=== PATIENT | female | born 1990 | race African-American/Black ===

== ENCOUNTER 2016-12-25 11:42 | Emergency (ER) | payer OTHER ==
[~2016-12-25] VITALS: Ht 174 cm; Wt 97.5 kg
[2016-12-25 12:10] VITALS: BP 142/71
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
[2016-12-25 13:18] LABS: OBC FLU VALID
[2016-12-25] MEDS ORDERED: PRED20TA PO (13:31)
[2016-12-25] MEDS ORDERED: HYDR115S2 PO (13:31)
== END 2016-12-25 13:36 | disposition home or self-care (01) ==
LOC: ER 11:42
DX: J20.9 Acute bronchitis, unspecified (principal); J45.909 Unspecified asthma, uncomplicated; G43.909 Migraine, unspecified, not intractable, without status migrainosus; E28.2 Polycystic ovarian syndrome; Z88.1 Allergy status to other antibiotic agents
CPT/HCPCS: 71020; 81025; 87804; 99285-25

== ENCOUNTER → 2017-02-24 | Outpatient (CLI) | payer OTHER ==
[~2017-02-24] MED LIST: HYDR115S2 PO; PRED20TA PO
[2017-02-24 15:37] LABS: BASO # 0.1 x10^3/uL (0.0-0.2); BASO % 1 % (0-3); EOS % 2 % (0-3); HEMATOCRIT 41.1 % (36.0-47.0); LYMPH # 2.5 x10^3/uL (1.0-4.8); LYMPH % 27 % (24-48); MEAN CORPUSCULAR HEMOGLOBIN 29 pg (25-35); MEAN CORPUSCULAR HGB CONC 34 g/dL (31-37); MEAN CORPUSCULAR VOLUME 85 fL (79-100); MONO % 6 % (0-9); NEUT % 64 % (31-73); PLATELET COUNT 269 x10^3/uL (140-400); RED BLOOD COUNT 4.85 x10^6/uL (3.50-5.40); RED CELL DISTRIBUTION WIDTH 14.8 % (11.5-14.5); WHITE BLOOD COUNT 9.2 x10^3/uL (4.0-11.0)
[2017-02-24 16:13] LABS: FREE T4 0.87 ng/dL (0.76-1.46)
== END | disposition home or self-care (01) ==
LOC: LAB 15:15
PROVIDERS: ATTEND Obstetrics & Gynecology
DX: E28.2 Polycystic ovarian syndrome (principal)
CPT/HCPCS: 36415; 84439; 84443; 85027

== ENCOUNTER → 2017-03-07 | Outpatient (CLI) | payer OTHER ==
--- NOTE | 2017-03-07 07:27 | RAD ---
Indication: Polycystic ovaries. The uterus measures 10.0 x 4.1 x 2.9 cm. Endometrium is 3 mm in thickness. No uterine mass is detected. The right ovary measures 3.6 x 2.1 x 2.2 cm and the left ovary measures 3.8 x 1.8 x 2.5 cm. There is blood flow to both ovaries. No ovarian mass or cyst is detected. No adnexal mass is identified. No free fluid is detected. Impression: Unremarkable pelvic ultrasound.
== END | disposition home or self-care (01) ==
LOC: US 06:52
PROVIDERS: ATTEND Obstetrics & Gynecology
DX: E28.2 Polycystic ovarian syndrome (principal)
CPT/HCPCS: 76856

== ENCOUNTER → 2017-09-21 | Outpatient (CLI) | payer OTHER | END | disposition home or self-care (01) | LOC: LAB 15:22 | PROVIDERS: ATTEND Internal Medicine | DX: Z32.00 Encounter for pregnancy test, result unknown (principal); Z3A.00 Weeks of gestation of pregnancy not specified | CPT/HCPCS: 36415; 84702 ==

== ENCOUNTER → 2017-09-27 | Outpatient (CLI) | payer OTHER ==
--- NOTE | 2017-09-27 11:34 | RAD ---
KNEE STANDING BILAT AP Clinical Indication: LEFT KNEE PAIN. DEGENERATIVE DISEASE OF LEFT KNEE. Comparison: None. Findings: No acute fracture or malalignment. Mild bilateral medial compartment space narrowing. Bony mineralization is normal for the patient's age. No significant soft tissue abnormality. No radiopaque foreign body. IMPRESSION: 1. No acute fracture or malalignment. 2. Mild bilateral medial compartment space narrowing.
== END | disposition home or self-care (01) ==
LOC: RAD 09:18
PROVIDERS: ATTEND Physical Medicine & Rehabilitation
DX: M17.12 Unilateral primary osteoarthritis, left knee (principal)
CPT/HCPCS: 73565

== ENCOUNTER → 2018-05-16 | Outpatient (CLI) | payer OTHER | END | disposition home or self-care (01) | LOC: US 15:56 | DX: O26.842 Uterine size-date discrepancy, second trimester (principal); Z3A.26 26 weeks gestation of pregnancy | CPT/HCPCS: 76805 ==

== ENCOUNTER 2018-07-22 02:33 | Observation (INO) | payer OTHER ==
[2018-07-22] MEDS ORDERED: 0.9 % SODIUM CHLORIDE 10 ML DISP.SYRIN. IV PRN (02:45)
[2018-07-22] MEDS ORDERED: IV RINGERS,LACTATED 1000ML 1,000 ML IV PRN (03:00)
[2018-07-22 03:15] LABS: BILIRUBIN,URINE NEGATIVE (NEG); CLARITY,URINE CLEAR; COLOR,URINE YELLOW; NITRITE,URINE NEGATIVE (NEG); PH,URINE 5.5; PROTEIN,URINE NEGATIVE (NEG-TRACE)
[2018-07-22 03:24] LABS: AMNIO PT NEGATIVE
[2018-07-22 03:29] LABS: BACTERIA,URINE FEW /HPF (0-FEW); RBC,URINE OCC /HPF (0-2); SQUAMOUS EPITHELIAL CELL,UR MOD /LPF
== END 2018-07-22 04:18 | disposition home or self-care (01) ==
LOC: 3 SO LND 02:33
PROVIDERS: ADMIT Obstetrics & Gynecology; ATTEND Obstetrics & Gynecology
DX: O26.893 Other specified pregnancy related conditions, third trimester (principal); R10.9 Unspecified abdominal pain; Z3A.35 35 weeks gestation of pregnancy
CPT/HCPCS: 36415; 81001; 84112; 87086; G0378; G0379

== ENCOUNTER → 2018-07-24 | Outpatient (CLI) | payer OTHER ==
--- NOTE | 2018-07-24 17:50 | RAD ---
Obstetrical ultrasound, 07/24/2018: HISTORY: Gestational diabetes There is a single intrauterine fetus in a cephalic orientation. The biparietal diameter measures 8.8 cm compatible with a gestational age of 35-36 weeks. This corresponds well with the other measurements yielding an average gestational age of 36 weeks and 0 days and a sonographic EDC of 08/21/2018. This correlates well with the original EDC of 08/20/2018 established on the 03/24/2018 ultrasound exam. Normal activity and heart motion were seen. The heart rate is 115 bpm. The head to abdominal circumference ratio is within normal limits. The weight was estimated at 6 pounds and 1 ounce +/- 14 ounces. A full survey was not attempted at this time. The placenta lies anteriorly and is grade 1. A normal amount of amniotic fluid is evident with the BERONICA calculated at 10.9. The cervix was not adequately visualized due to the overlying head. IMPRESSION: Single viable intrauterine fetus of 36 weeks gestational age as described above, demonstrating normal interval growth since 03/24/2018. Electronically signed by: Jose Lee MD (07/24/2018 5:47 PM) [facility]
== END | disposition home or self-care (01) ==
LOC: US 15:54
PROVIDERS: ATTEND Obstetrics & Gynecology
DX: O24.419 Gestational diabetes mellitus in pregnancy, unspecified control (principal); J45.909 Unspecified asthma, uncomplicated; G43.909 Migraine, unspecified, not intractable, without status migrainosus; Z3A.36 36 weeks gestation of pregnancy; Z88.1 Allergy status to other antibiotic agents
CPT/HCPCS: 76805

== ENCOUNTER 2018-08-01 11:40 | Observation (INO) | payer OTHER ==
[2018-08-01 12:25] LABS: BASO # 0.1 x10^3/uL (0.0-0.2); BASO % 1 % (0-3); EOS # 0.1 x10^3/uL (0.0-0.7); EOS % 1 % (0-3); HEMATOCRIT 38.9 % (36.0-47.0); LYMPH # 2.2 x10^3/uL (1.0-4.8); LYMPH % 20 % (24-48); MEAN CORPUSCULAR HEMOGLOBIN 28 pg (25-35); MEAN CORPUSCULAR HGB CONC 33 g/dL (31-37); MEAN CORPUSCULAR VOLUME 84 fL (79-100); MONO # 0.9 x10^3/uL (0.0-1.1); MONO % 8 % (0-9); NEUT # 7.8 x10^3uL (1.8-7.7); NEUT % 70 % (31-73); PLATELET COUNT 212 x10^3/uL (140-400); RED BLOOD COUNT 4.64 x10^6/uL (3.50-5.40); RED CELL DISTRIBUTION WIDTH 14.5 % (11.5-14.5); WHITE BLOOD COUNT 11.1 x10^3/uL (4.0-11.0)
[2018-08-01 12:35] LABS: CALCIUM 9.5 mg/dL (8.5-10.1); CREATININE 0.5 mg/dL (0.6-1.0); GFR 175.3; POTASSIUM 4.3 mmol/L (3.5-5.1)
[2018-08-01 12:41] LABS: ALBUMIN 2.5 g/dL (3.4-5.0); ALBUMIN/GLOBULIN RATIO 0.6 (1.0-1.7); TOTAL BILIRUBIN 0.5 mg/dL (0.2-1.0); TOTAL PROTEIN 6.8 g/dL (6.4-8.2); URIC ACID 4.3 mg/dL (2.6-6.0)
== END 2018-08-01 14:20 | disposition home or self-care (01) ==
LOC: 3 SO LND 11:40
PROVIDERS: ADMIT Obstetrics & Gynecology; ATTEND Obstetrics & Gynecology
DX: O13.3 Gestational [pregnancy-induced] hypertension without significant proteinuria, third trimester (principal); Z3A.37 37 weeks gestation of pregnancy
CPT/HCPCS: 36415; 80053; 84550; 85025; G0378; G0379

== ENCOUNTER 2018-08-08 17:37 | Inpatient (IN) | payer OTHER ==
[~2018-08-08] VITALS: Ht 172.7 cm; Wt 110.2 kg
[2018-08-08] MEDS ORDERED: NALBUPHINE 10 MG/ML AMPUL. IV PRN (17:45)
[2018-08-08] MEDS ORDERED: OXYTOCIN 30 UNIT/500 ML PREMIX 500 ML IV PRN (17:45)
[2018-08-08] MEDS ORDERED: LIDOCAINE 1% PF 30 ML VIAL. INJ PRN (17:45)
[2018-08-08] MEDS ORDERED: fentaNYL PF VIAL 100 MCG/2 ML VIAL IV PRN (17:45)
[2018-08-08] MEDS ORDERED: TERBUTALINE 1 MG/ML VIAL. SQ PRN (17:45)
[2018-08-08] MEDS ORDERED: IBUPROFEN 400 MG TABLET. PO PRN (17:45)
[2018-08-08] MEDS ORDERED: 0.9 % SODIUM CHLORIDE 10 ML DISP.SYRIN. IV PRN (17:45)
[2018-08-08] MEDS ORDERED: BUTORPHANOL 2 MG/ML VIAL. IV PRN (17:45)
[2018-08-08] MEDS ORDERED: ONDANSETRON PF 4 MG/2 ML VIAL. IV PRN (17:45)
[2018-08-08] MEDS ORDERED: DINOPROSTONE 10 MG SUPP.VAG VG ONE (17:45)
[2018-08-08] MEDS ORDERED: CITRIC ACID/SODIUM CITRATE 30 ML SOLUTION. PO PRN (17:45)
[2018-08-08 18:38] LABS: BASO % 0 % (0-3); EOS % 0 % (0-3); HEMOGLOBIN 13.1 g/dL (12.0-15.5); LYMPH # 2.1 x10^3/uL (1.0-4.8); LYMPH % 19 % (24-48); MEAN CORPUSCULAR HEMOGLOBIN 28 pg (25-35); MEAN CORPUSCULAR HGB CONC 34 g/dL (31-37); MEAN CORPUSCULAR VOLUME 83 fL (79-100); MONO # 0.8 x10^3/uL (0.0-1.1); MONO % 8 % (0-9); NEUT # 8.1 x10^3uL (1.8-7.7); NEUT % 73 % (31-73); PLATELET COUNT 232 x10^3/uL (140-400); RED CELL DISTRIBUTION WIDTH 14.6 % (11.5-14.5); WHITE BLOOD COUNT 11.1 x10^3/uL (4.0-11.0)
[2018-08-08 18:42] VITALS: BP 137/92
[2018-08-08 18:58] LABS: ALBUMIN 2.7 g/dL (3.4-5.0); ALBUMIN/GLOBULIN RATIO 0.7 (1.0-1.7); CALCIUM 9.2 mg/dL (8.5-10.1); CREATININE 0.6 mg/dL (0.6-1.0); POTASSIUM 4.4 mmol/L (3.5-5.1); TOTAL BILIRUBIN 0.6 mg/dL (0.2-1.0); TOTAL PROTEIN 6.5 g/dL (6.4-8.2)
--- NOTE | 2018-08-08 19:29 | PDOC1 ---
OB - History Hx of Present Care: Good Care Ultrasounds: Normal mid trimester US Obstetrical Complications: Gestational Hypertension, Other (GDM A1) Medical Complications: None Past Family/Social History * Past Medical, Surgical, Family and Obstetric Histories reviewed from chart. Rubella: Immune RPR/VDRL: Negative GBS Status: Negative HBsAG: Negative OB - Chief Complaint & HPI Date of Admission: Date of Admission: Aug 08, 2018 at 17:37 Chief Complaint/History : 3 Para: 1 EGA: 38 Reason for admission: induction of labor (Gestational HTN) Admission Nurse Assessment Rev: Yes OB - Admission Exam Physical Exam Vitals: VS - Last 72 Hours, by Label Date Time Temp Pulse Resp B/P (MAP) Pulse Ox O2 Delivery O2 Flow Rate FiO2 08/08/18 18:42 80 20 137/92 (107) HEENT: Normal Heart: Regular Rate Lungs: Clear Abdomen: Gravid, Non tender, Soft Extremities: Edema Reflexes: Normal Cervical Dilatation: 1cm Effacement: 50% Station: -3 Membranes: Intact Heart Rate: Normal Accelerations: Accelerations Present Decelerations: No decelerations Contractions on Admission: >10 Minutes Apart Intensity: Mild Text A: 38 wks IUP Gestational HTN P: Admit for cervidil, then pitocin. JAREN VELAZQUEZ Jr, MD Aug 08, 2018 19:29
[2018-08-08] MEDS ORDERED: LABETALOL 20 MG/4 ML DISP.SYRIN. IVP PRN (20:00)
[2018-08-08] MEDS ORDERED: diphenhydrAMINE HCL 25 MG CAPSULE PO PRN (20:00)
[2018-08-08] MEDS: NIFEdipine 10 MG CAPSULE PO SCH (20:49)
[2018-08-08] MEDS: ACETAMINOPHEN 325 MG TABLET. PO PRN (21:28)
[2018-08-09] MEDS: OXYTOCIN 30 UNIT/500 ML PREMIX 500 ML IV PRN ×2 (00:11→10:37)
[2018-08-09] MEDS: IV RINGERS,LACTATED 1000ML 1,000 ML IV SCH ×3 (00:11→17:33)
[2018-08-09] MEDS: ACETAMINOPHEN 325 MG TABLET. PO PRN ×2 (04:05→08:43)
[2018-08-09] MEDS ORDERED: OXYTOCIN 30 UNIT/500 ML PREMIX 500 ML IV PRN ×2 (05:00→19:15)
[2018-08-09] MEDS ORDERED: ASPIRIN 325 MG TABLET PO ONE (13:30)
[2018-08-09] MEDS ORDERED: L&D EPIDURAL SYRINGE 50 ML ONE ×2 (14:08→17:27)
[2018-08-09] MEDS ORDERED: ROPIVacaine 0.2% IN 0.9%NACL PF 40 MG/20 ML DISP.SYRIN. ONE ×3 (14:08→16:31)
[2018-08-09] MEDS ORDERED: IV RINGERS,LACTATED 1000ML 1,000 ML IV SCH (14:42)
[2018-08-09] MEDS ORDERED: NALOXONE 0.4 MG/ML VIAL. IV PRN (14:45)
[2018-08-09] MEDS ORDERED: ePHEDrine PF IN SALINE 50 MG/5 ML DISP.SYRIN IV PRN (14:45)
[2018-08-09] MEDS ORDERED: fentaNYL PF VIAL 100 MCG/2 ML VIAL EPI PRN (14:45)
[2018-08-09] MEDS ORDERED: ROPIVacaine 0.2% IN 0.9%NACL PF 40 MG/20 ML DISP.SYRIN. EPID PRN (14:45)
[2018-08-09] MEDS ORDERED: ONDANSETRON PF 4 MG/2 ML VIAL. IV PRN (14:45)
[2018-08-09] MEDS ORDERED: L&D EPIDURAL 50 ML SYRINGE. ONE (15:00)
[2018-08-09] MEDS ORDERED: L&D EPIDURAL SYRINGE 50 ML EP PRN (17:30)
--- NOTE | 2018-08-09 19:13 | PDOC ---
VAGINAL DELIVERY DATE DATE: 08/09/18 TIME: 19:11 : 3 Para: 2 EGA: 38 VAGINAL DELIVERY: VTX VACCUM ASSISTED: No PLACENTA: Spontaneous 8/9 SEX: Female WEIGHT Weight [ 3175 gm] Nuchal Cord: Yes, Times 1 Amniotic Fluid: Clear PAIN: Epidural EPISIOTOMY: No EXTENSION: No EBL 300ml COMPLICATIONS none CONDITION pt. stable Signs of Intrauterine Infectio: None Shoulder Dystocia: No JAREN VELAZQUEZ Jr, MD Aug 09, 2018 19:13
[2018-08-09] MEDS ORDERED: ACETAMINOPHEN 325 MG TABLET. PO PRN (19:15)
[2018-08-09] MEDS ORDERED: PHENYLEPH/MINERAL OIL/PETROLAT RECTAL OINTMENT 28GM TUBE. RC PRN (19:15)
[2018-08-09] MEDS ORDERED: SIMETHICONE 80 MG TAB.CHEW PO PRN (19:15)
[2018-08-09] MEDS ORDERED: diphenhydrAMINE HCL 25 MG CAPSULE PO PRN (19:15)
[2018-08-09] MEDS ORDERED: DOCUSATE SODIUM 100 MG CAPSULE. PO PRN (19:15)
[2018-08-09] MEDS ORDERED: MAGNESIUM HYDROXIDE 2,400 MG/30 ML ORAL.SUSP. PO PRN (19:15)
[2018-08-09] MEDS ORDERED: HYDROCORTISONE 1% TOPICAL OINTMENT 30GM TUBE. TP PRN (19:15)
[2018-08-09] MEDS ORDERED: ZOLPIDEM 5 MG TABLET. PO PRN (19:15)
[2018-08-09] MEDS ORDERED: MAG HYDROX/ALUMINUM HYD/SIMETH 30 ML ORAL.SUSP PO PRN (19:15)
[2018-08-09] MEDS ORDERED: MMR per PROTOCOL. MC PRN (19:15)
[2018-08-09] MEDS ORDERED: oxyCODONE/APAP 5/325 1 TAB TABLET PO PRN (19:15)
[2018-08-09] MEDS ORDERED: 0.9 % SODIUM CHLORIDE 10 ML DISP.SYRIN. IV PRN (19:15)
[2018-08-09] MEDS ORDERED: BENZOCAINE 20% TOPICAL AEROSOL SPRAY 57GM CAN. TP PRN (19:15)
[2018-08-09] MEDS: IBUPROFEN 400 MG TABLET. PO PRN (21:21)
[2018-08-09 22:39] VITALS: BP 119/64
[2018-08-09 23:45] VITALS: BP 136/84
[2018-08-10] MEDS: NIFEdipine 10 MG CAPSULE PO SCH (00:21)
[2018-08-10 05:02] LABS: BASO % 0 % (0-3); EOS % 0 % (0-3); HEMATOCRIT 36.5 % (36.0-47.0); HEMOGLOBIN 12.2 g/dL (12.0-15.5); LYMPH # 2.4 x10^3/uL (1.0-4.8); LYMPH % 17 % (24-48); MEAN CORPUSCULAR HEMOGLOBIN 28 pg (25-35); MEAN CORPUSCULAR HGB CONC 34 g/dL (31-37); MEAN CORPUSCULAR VOLUME 84 fL (79-100); MONO # 0.7 x10^3/uL (0.0-1.1); MONO % 5 % (0-9); NEUT # 10.7 x10^3uL (1.8-7.7); NEUT % 77 % (31-73); PLATELET COUNT 190 x10^3/uL (140-400); RED BLOOD COUNT 4.34 x10^6/uL (3.50-5.40); RED CELL DISTRIBUTION WIDTH 15.1 % (11.5-14.5); WHITE BLOOD COUNT 13.8 x10^3/uL (4.0-11.0)
[2018-08-10] MEDS: IBUPROFEN 400 MG TABLET. PO PRN ×2 (06:00→22:11)
[2018-08-10 06:16] VITALS: BP 121/74
[2018-08-10] MEDS ORDERED: FERROUS SULFATE 325 MG TABLET. PO SCH (08:00)
--- NOTE | 2018-08-10 08:45 | PDOC ---
OB Progress Note Date of Service 08/10/18 Time of Evaluation 0845 Notes PT. feeling well. No complaints. Lab Laboratory Tests Test 08/08/18 18:15 08/10/18 04:25 White Blood Count 11.1 x10^3/uL (4.0-11.0) 13.8 x10^3/uL (4.0-11.0) Red Blood Count 4.70 x10^6/uL (3.50-5.40) 4.34 x10^6/uL (3.50-5.40) Hemoglobin 13.1 g/dL (12.0-15.5) 12.2 g/dL (12.0-15.5) Hematocrit 39.0 % (36.0-47.0) 36.5 % (36.0-47.0) Mean Corpuscular Volume 83 fL (79-100) 84 fL (79-100) Mean Corpuscular Hemoglobin 28 pg (25-35) 28 pg (25-35) Mean Corpuscular Hemoglobin Concent 34 g/dL (31-37) 34 g/dL (31-37) Red Cell Distribution Width 14.6 % (11.5-14.5) 15.1 % (11.5-14.5) Platelet Count 232 x10^3/uL (140-400) 190 x10^3/uL (140-400) Neutrophils (%) (Auto) 73 % (31-73) 77 % (31-73) Lymphocytes (%) (Auto) 19 % (24-48) 17 % (24-48) Monocytes (%) (Auto) 8 % (0-9) 5 % (0-9) Eosinophils (%) (Auto) 0 % (0-3) 0 % (0-3) Basophils (%) (Auto) 0 % (0-3) 0 % (0-3) Neutrophils # (Auto) 8.1 x10^3uL (1.8-7.7) 10.7 x10^3uL (1.8-7.7) Lymphocytes # (Auto) 2.1 x10^3/uL (1.0-4.8) 2.4 x10^3/uL (1.0-4.8) Monocytes # (Auto) 0.8 x10^3/uL (0.0-1.1) 0.7 x10^3/uL (0.0-1.1) Eosinophils # (Auto) 0.0 x10^3/uL (0.0-0.7) 0.0 x10^3/uL (0.0-0.7) Basophils # (Auto) 0.0 x10^3/uL (0.0-0.2) 0.0 x10^3/uL (0.0-0.2) Sodium Level 140 mmol/L (136-145) Potassium Level 4.4 mmol/L (3.5-5.1) Chloride Level 106 mmol/L (98-107) Carbon Dioxide Level 21 mmol/L (21-32) Anion Gap 13 (6-14) Blood Urea Nitrogen 8 mg/dL (7-20) Creatinine 0.6 mg/dL (0.6-1.0) Estimated GFR (Cockcroft-Gault) 142.0 BUN/Creatinine Ratio 13 (6-20) Glucose Level 91 mg/dL (70-99) Uric Acid 6.0 mg/dL (2.6-6.0) Calcium Level 9.2 mg/dL (8.5-10.1) Total Bilirubin 0.6 mg/dL (0.2-1.0) Aspartate Amino Transf (AST/SGOT) 16 U/L (15-37) Alanine Aminotransferase (ALT/SGPT) 17 U/L (14-59) Alkaline Phosphatase 272 U/L (46-116) Total Protein 6.5 g/dL (6.4-8.2) Albumin 2.7 g/dL (3.4-5.0) Albumin/Globulin Ratio 0.7 (1.0-1.7) Treponema pallidum Antibody Nonreactive (Nonreactive) Laboratory Tests Test 08/10/18 04:25 White Blood Count 13.8 x10^3/uL (4.0-11.0) Red Blood Count 4.34 x10^6/uL (3.50-5.40) Hemoglobin 12.2 g/dL (12.0-15.5) Hematocrit 36.5 % (36.0-47.0) Mean Corpuscular Volume 84 fL (79-100) Mean Corpuscular Hemoglobin 28 pg (25-35) Mean Corpuscular Hemoglobin Concent 34 g/dL (31-37) Red Cell Distribution Width 15.1 % (11.5-14.5) Platelet Count 190 x10^3/uL (140-400) Neutrophils (%) (Auto) 77 % (31-73) Lymphocytes (%) (Auto) 17 % (24-48) Monocytes (%) (Auto) 5 % (0-9) Eosinophils (%) (Auto) 0 % (0-3) Basophils (%) (Auto) 0 % (0-3) Neutrophils # (Auto) 10.7 x10^3uL (1.8-7.7) Lymphocytes # (Auto) 2.4 x10^3/uL (1.0-4.8) Monocytes # (Auto) 0.7 x10^3/uL (0.0-1.1) Eosinophils # (Auto) 0.0 x10^3/uL (0.0-0.7) Basophils # (Auto) 0.0 x10^3/uL (0.0-0.2) Medications Current Medications Sodium Chloride (Normal Saline Flush) 3 ml QSHIFT PRN IV AFTER MEDS AND BLOOD DRAWS; Start 08/08/18 at 17:45 Ringer's Solution 1,000 ml @ 125 mls/hr Q8H IV Last administered on at 17:33; Start 08/08/18 at 17:42 Nalbuphine HCl (Nubain) 10 mg PRN Q1HR PRN IV Severe labor pain; Start at 17:45 Butorphanol Tartrate (Stadol) 2 mg PRN Q1HR PRN IV Severe labor pain; Start at 17:45 Fentanyl Citrate (Fentanyl 2ml Vial) 100 mcg PRN Q30MIN PRN IV Severe pain; Start 08/08/18 at 17:45; Stop 08/09/18 at 17:32; Status DC Acetaminophen (Tylenol) 650 mg PRN Q6HRS PRN PO MILD PAIN / TEMP Last administered on 08/09/18at 08:43; Start 08/08/18 at 17:45; Stop 08/09/18 at 19: 17; Status DC Ondansetron HCl (Zofran) 4 mg PRN Q4HRS PRN IV NAUSEA/VOMITING; Start 08/08/18 at 17:45 Citric Acid/ Sodium Citrate (Bicitra) 30 ml 1X PRN PRN PO DYSPEPSIA; Start 08/08/18 at 17:45; Stop 08/09/18 at 17:44; Status DC Terbutaline Sulfate (Brethine) 0.25 mg 1X PRN PRN SQ SEE COMMENTS; Start at 17:45; Stop 08/09/18 at 17:44; Status DC Lidocaine HCl (Xylocaine 1% Pf 30ml Vial) 30 ml 1X PRN PRN INJ SEE COMMENTS; Start 08/08/18 at 17:45; Stop 08/10/18 at 17:44 Oxytocin/Sodium Chloride 500 ml @ 0 mls/hr CONT PRN IV SEE I/O RECORD; Start 08/09/18 at 05:00; Stop 08/09/18 at 05:00; Status DC Oxytocin/Sodium Chloride 500 ml @ 0 mls/hr CONT PRN PRN IV Post delivery bleeding; Start 08/08/18 at 17:45 Ibuprofen (Motrin) 800 mg PRN Q6HRS PRN PO PAIN; Start 08/08/18 at 17:45; Stop 08/09/18 at 19:17; Status DC Dinoprostone (Cervidil) 10 mg 1X ONCE VG Last administered on 08/07/18at 17:45 ; Start 08/08/18 at 17:45; Stop 08/08/18 at 17:49; Status DC Nifedipine (Procardia) 30 mg HS PO Last administered on 08/10/18at 00:21; Start 08/08/18 at 21:00 Labetalol HCl (Normodyne Iv Push) 20 mg PRN Q10MIN PRN IVP hypertension; Start 08/08/18 at 20:00 Diphenhydramine HCl (Benadryl) 50 mg PRN QHS PRN PO INSOMNIA; Start 08/08/18 at 20:00 Oxytocin/Sodium Chloride 500 ml @ 0 mls/hr CONT PRN IV SEE I/O RECORD Last administered on 08/09/18at 10:37; Start 08/09/18 at 00:00 Influenza Virus Vaccine (Afluria Trivalent 5993-4297 Syringe) 0.5 ml ONCE ONCE VAX IM ; Start 08/09/18 at 12:00; Stop 08/09/18 at 12:01; Status DC Aspirin (Rhina Aspirin) 325 mg 1X ONCE PO Last administered on 08/09/18at 13: 28; Start 08/09/18 at 13:30; Stop 08/09/18 at 13:31; Status DC Ropivacaine/ Sodium Chloride (ROPIVacaine 0.2% - 0.9%NACL PF) 40 mg STK-MED ONCE .ROUTE ; Start 08/09/18 at 14:08; Stop 08/09/18 at 14:09; Status DC Ropivacaine/ Fentanyl/NS 50 ml @ As Directed STK-MED ONCE .ROUTE ; Start at 14:08; Stop 08/09/18 at 14:09; Status DC Ringer's Solution 1,000 ml @ 1,000 mls/hr Q1H IV ; Start 08/09/18 at 14:42; Stop 08/09/18 at 15:41; Status DC Ephedrine Sulfate (ePHEDrine PF IN SALINE SYRINGE) 10 mg PRN Q2MIN PRN IV IF SBP<90; Start 08/09/18 at 14:45 Naloxone HCl (Narcan) 0.4 mg PRN Q1MIN PRN IV SEE COMMENTS; Start 08/09/18 at 14:45 Fentanyl Citrate (Fentanyl 2ml Vial) 100 mcg PRN 1X PRN EPI FOR ANESTHESIA; Start 08/09/18 at 14:45; Stop 08/10/18 at 14:44 Ondansetron HCl (Zofran) 4 mg PRN Q6HRS PRN IV NAUSEA/VOMITING; Start at 14:45; Status Cancel Ropivacaine/ Sodium Chloride (ROPIVacaine 0.2% - 0.9%NACL PF) 40 mg PRN 1X PRN EPID SEE COMMENTS Last administered on 08/09/18at 14:48; Start 08/09/18 at 14: 45; Stop 08/09/18 at 14:51; Status DC Ropivacaine/ Sodium Chloride (ROPIVacaine 0.2% - 0.9%NACL PF) 40 mg STK-MED ONCE .ROUTE ; Start 08/09/18 at 16:31; Stop 08/09/18 at 16:32; Status DC Ropivacaine/ Fentanyl/NS 50 ml @ As Directed STK-MED ONCE .ROUTE ; Start at 17:27; Stop 08/09/18 at 17:28; Status DC Ropivacaine/ Fentanyl/NS 50 ml @ 14 mls/hr CONT PRN EP PAIN Last administered on 08/09/18at 17:34; Start 08/09/18 at 17:30 Sodium Chloride (Normal Saline Flush) 10 ml QSHIFT PRN IV AFTER MEDS AND BLOOD DRAWS; Start 08/09/18 at 19:15 Oxytocin/Sodium Chloride 500 ml @ 62.5 mls/hr CONT PRN IV SEE I/O RECORD; Start 08/09/18 at 19:15; Stop 08/10/18 at 03:14; Status DC Acetaminophen (Tylenol) 650 mg PRN Q6HRS PRN PO MILD PAIN / TEMP; Start at 19:15 Ibuprofen (Motrin) 800 mg PRN Q8HRS PRN PO INFLAMMATION/PAIN PREVENTION Last administered on 08/10/18at 06:00; Start 08/09/18 at 19:15 Docusate Sodium (Colace) 100 mg PRN BID PRN PO HARD STOOLS; Start 08/09/18 at 19:15 Magnesium Hydroxide (Milk Of Magnesia) 2,400 mg PRN DAILY PRN PO CONSTIPATION; Start 08/09/18 at 19:15 Al Hydroxide/Mg Hydroxide (Mylanta Plus Xs) 30 ml PRN Q4HRS PRN PO HEARTBURN / GAS; Start 08/09/18 at 19:15 Simethicone (Gas-X) 80 mg PRN AFTMEALHC PRN PO GAS / BLOATING; Start 08/09/18 at 19:15 Diphenhydramine HCl (Benadryl) 25 mg PRN Q6HRS PRN PO ITCHING; Start 08/09/18 at 19:15 Benzocaine (Americaine) 1 spray PRN QID PRN TP TOPICAL PAIN; Start 08/09/18 at 19:15 Phenyleph/Shark Oil/Min Oil/Petrol (Preparation H) 1 kenny PRN QID PRN RC RECTAL PAIN; Start 08/09/18 at 19:15 Hydrocortisone (Cortaid) 1 kenny PRN QID PRN TP PERINEAL PAIN; Start 08/09/18 at 19:15 Ferrous Sulfate (Feosol) 325 mg BIDWMEALS PO ; Start 08/10/18 at 08:00; Stop 08/10/18 at 08:00; Status DC Zolpidem Tartrate (Ambien) 5 mg PRN QHS PRN PO INSOMNIA, MAY REPEAT X1; Start 08/09/18 at 19:15 Info (Do NOT chart on this placeholder) 1 ea 1X PRN PRN MC SEE COMMENTS; Start 08/09/18 at 19:15 Info (Do NOT chart on this placeholder) 1 ea 1X PRN PRN MC SEE COMMENTS; Start 08/09/18 at 19:15 Oxycodone/ Acetaminophen (Percocet 5/325) 2 tab PRN Q4HRS PRN PO MODERATE PAIN , SEVERE PAIN; Start 08/09/18 at 19:15 Ropivacaine/ Fentanyl/NS (Vsgvobem-Joveu-QG 3 Mcg-0.1%) 50 ml STK-MED ONCE .ROUTE ; Start 08/09/18 at 15:00; Stop 08/10/18 at 08:32; Status DC Ropivacaine/ Sodium Chloride (ROPIVacaine 0.2% - 0.9%NACL PF) 40 mg STK-MED ONCE .ROUTE ; Start 08/09/18 at 15:00; Stop 08/10/18 at 08:32; Status DC Active Scripts Active Tussionex Pennkinetic Susp (Hydrocodone/Chlorphen Polis) 480 Ml Emelyn.er.12h 5 Ml PO BID Prednisone 20 Mg Tablet 40 Mg PO DAILY 5 Days Exam Abd: soft, non tender, fundus firm Assessment PPD#1 s/p Plan of Care: Continue current Tx, Mgmt JAREN VELAZQUEZ Jr, MD Aug 10, 2018 08:45
[2018-08-10] MEDS ORDERED: DIPHTH,PERTUSS(ACELL),TET TOX 0.5 ML DISP.SYRIN. VAX IM ONE (10:15)
[2018-08-10 11:00] VITALS: BP 120/77
[2018-08-10 15:35] VITALS: BP 118/62
[2018-08-10 21:45] VITALS: BP 139/88
[2018-08-11 05:55] VITALS: BP 133/84
--- NOTE | 2018-08-11 12:14 | PDOC3 ---
OB DISCHARGE SUMMARY DATE OF ADMISSION: 08/08/18 DATE OF DISCHARGE: 08/11/18 REASON FOR ADMISSION: Induction of labor (Gestational HTN) INTRAPARTUM PROCEDURES: Spontanous Vag Deliv DISCHARGE DIAGNOSIS: Term Delivered (Gestational HTN) DISCHARGE INFORMATION: Activity (ad taj), Diet (regular), Instructions (pelvic rest x 6 wks) HOSPITAL COURSE Term gestation for IOL secondary gestational HTN. SHe delivered without complications. JAREN VELAZQUEZ Jr, MD Aug 11, 2018 12:14
--- NOTE | 2018-08-11 12:15 | DISCH ---
DISCHARGE INSTRUCTIONS Condition on Discharge Condition on Discharge: Stable Activity After Discharge Activity Instructions for Disc: Activity as tolerated Lifting Instructions after Dis: No heavy lifting Driving Instructions after Dis: Do not drive today Diet after Discharge Diet after Discharge: Regular Contacting the DRPhillip after DC Call your doctor for: Concerns you may have Follow-Up Follow up with: Dr. Fowler in 6 wks JAREN FOWLER Jr, MD Aug 11, 2018 12:15
[2018-08-11] MEDS ORDERED: IBUP-1027 PO (12:16)
[2018-08-11 14:52] VITALS: BP 122/84
--- NOTE | 2018-08-11 15:08 | PATHOLOGY ---
[facility] Accession Number: [id number] . 01 Material submitted: . PLACENTA WITH CORD . 01 Clinical history: . Please see delivery summary. . 02 Diagnosis: Placenta and cord: - Findings compatible with third trimester placenta (490 grams). - Three vessel umbilical cord; negative for vasculitis and funisitis. - Membranes; negative for acute chorioamnionitis. (MAP/db; 08/11/18) LBQ/08/11/2018 . 02 Electronically signed: . Natanael Ferrari MD, Pathologist NPI- [id number] . 01 Gross description: . Received in formalin labeled "Mago Tsai, placenta" is a cordero placenta with attached membranes and umbilical cord. The placental disc measures 16.5 x 15.6 x 3.8 cm. The membranes are transparent and thin with the site of membrane rupture 1.6 cm from the placental margin. The membranes have a circum-marginate insertion. The umbilical cord measures 48.0 cm in length, 1.0 cm in diameter, contains three vessels and inserts eccentrically, 2.8 cm from the closest placental margin. There are no true knots in the umbilical cord. The trimmed placental weight is 490 grams. The surface is blue-bradshaw with minimal subchorionic fibrin. Amnion nodosum is not present. Cysts are not present. The maternal surface has intact cotyledons and no basal hemorrhage. Sectioning through the placental disc reveals scant focal areas of calcification and no infarcts. Sections are submitted as follows: . A1 proximal and distal umbilical cord A2 membranes, rolled A3 international sales representative peripheral placenta A4 international sales representative central placenta ([facility]; 08/10/2018) SYC/SYC . 02 Pathologist provided ICD-10: O80, Z37.0, Z3A.37 . 02 [facility] . [id number] Specimen Comment: A courtesy copy of this report has been sent to Specimen Comment: [phone], . Specimen Comment: Report sent to / DR AVILES Performed at: [address], [place] [id number] MD Sandip Redmond MD Phone: [phone] Performed at: [address] [id number] MD Alyse Fishman MD Phone: [phone]
== END 2018-08-11 16:30 | disposition home or self-care (01) | DRG 807 ==
LOC: 3 SO LND 17:37
PROVIDERS: ADMIT Obstetrics & Gynecology; ATTEND Obstetrics & Gynecology
PROC: 10E0XZZ Delivery of Products of Conception, External Approach (ICD-10-PCS; principal; 2018-08-10)
PROC: 3E0R3BZ Introduction of Anesthetic Agent into Spinal Canal, Percutaneous Approach (ICD-10-PCS; 2018-08-10)
PROC: 00HU33Z Insertion of Infusion Device into Spinal Canal, Percutaneous Approach (ICD-10-PCS; 2018-08-10)
PROC: 3E0P7VZ Introduction of Hormone into Female Reproductive, Via Natural or Artificial Opening (ICD-10-PCS; 2018-08-10)
DX: O13.4 Gestational [pregnancy-induced] hypertension without significant proteinuria, complicating childbirth (principal); Z37.0 Single live birth; O69.81X0 Labor and delivery complicated by cord around neck, without compression, not applicable or unspecified; Z3A.38 38 weeks gestation of pregnancy; Z86.32 Personal history of gestational diabetes; Z88.8 Allergy status to other drugs, medicaments and biological substances; Z91.013 Allergy to seafood
CPT/HCPCS: 36415; 80053; 84550; 85025; 86592; 86850; 86900; 86901; 88307; 90471; 90715; 90756; J2590; J2795; J7120; Q2035

== ENCOUNTER 2018-12-20 19:40 | Emergency (ER) | payer OTHER ==
[~2018-12-20] VITALS: Ht 172.7 cm; Wt 103.4 kg
[~2018-12-20 19:40] MED LIST changes: +IBUP-1027 PO
[2018-12-20] MEDS ORDERED: DEXAMETHASONE SOD PHOS 20 MG/5 ML VIAL. IV ONE (22:00)
[2018-12-20] MEDS ORDERED: IV NORMAL SALINE 1000ML BAG 1,000 ML IV ONE (22:00)
[2018-12-20] MEDS ORDERED: ONDANSETRON PF 4 MG/2 ML VIAL. IV ONE ×2 (22:00)
[2018-12-20] MEDS ORDERED: KETOROLAC 15 MG/ML VIAL. IV ONE (22:00)
[2018-12-20 22:16] LABS: BASO # 0.1 x10^3/uL (0.0-0.2); BASO % 1 % (0-3); EOS # 0.3 x10^3/uL (0.0-0.7); EOS % 4 % (0-3); HEMATOCRIT 43.7 % (36.0-47.0); HEMOGLOBIN 14.3 g/dL (12.0-15.5); LYMPH % 28 % (24-48); MEAN CORPUSCULAR HEMOGLOBIN 28 pg (25-35); MEAN CORPUSCULAR HGB CONC 33 g/dL (31-37); MEAN CORPUSCULAR VOLUME 84 fL (79-100); MONO # 0.4 x10^3/uL (0.0-1.1); MONO % 6 % (0-9); NEUT # 4.6 x10^3uL (1.8-7.7); NEUT % 62 % (31-73); PLATELET COUNT 239 x10^3/uL (140-400); RED BLOOD COUNT 5.18 x10^6/uL (3.50-5.40); RED CELL DISTRIBUTION WIDTH 14.9 % (11.5-14.5); WHITE BLOOD COUNT 7.4 x10^3/uL (4.0-11.0)
[2018-12-20 22:28] LABS: CREATININE 0.5 mg/dL (0.6-1.0); GFR 175.3
[2018-12-20 22:35] LABS: ALBUMIN 3.8 g/dL (3.4-5.0); MAGNESIUM 2.1 mg/dL (1.8-2.4); TOTAL BILIRUBIN 0.9 mg/dL (0.2-1.0); TOTAL PROTEIN 7.8 g/dL (6.4-8.2)
[2018-12-20 23:28] LABS: BILIRUBIN,URINE NEGATIVE (NEG); CLARITY,URINE CLOUDY; COLOR,URINE YELLOW; NITRITE,URINE POSITIVE (NEG); PROTEIN,URINE NEGATIVE (NEG-TRACE); UROBILINOGEN,URINE 0.2 mg/dL (0.2 mg/dL)
[2018-12-20 23:32] LABS: BACTERIA,URINE MANY /HPF (0-FEW); RBC,URINE 0 /HPF (0-2); SQUAMOUS EPITHELIAL CELL,UR MOD /LPF
[2018-12-21] MEDS ORDERED: CEPH-264 PO (00:14)
[2018-12-21] MEDS ORDERED: BUTA1TAB23 PO (00:14)
[2018-12-21] MEDS ORDERED: ONDA4TAB12 PO (00:14)
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
[2018-12-21] MEDS ORDERED: cefTRIAXone IV Push 1 GM VIAL. IVP ONE (00:15)
[2018-12-21 01:02] VITALS: BP 116/72
== END 2018-12-21 01:34 | disposition home or self-care (01) ==
LOC: ER 19:40
DX: R51 Headache (principal); N30.00 Acute cystitis without hematuria; J45.909 Unspecified asthma, uncomplicated; G43.909 Migraine, unspecified, not intractable, without status migrainosus; Z88.1 Allergy status to other antibiotic agents; Z91.013 Allergy to seafood
CPT/HCPCS: 36415; 80053; 81001; 81025; 83735; 85025; 87086; 96374; 96375; 99284; J0696; J1100; J1885; J2405; J7030

== ENCOUNTER 2019-01-16 11:32 | Emergency (ER) | payer OTHER ==
[~2019-01-16] VITALS: Ht 175.3 cm; Wt 100.7 kg
[~2019-01-16 11:32] MED LIST changes: +BUTA1TAB23 PO; +CEPH-264 PO; +ONDA4TAB12 PO
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
[2019-01-16] MEDS: predniSONE 10 MG TABLET PO ONE (12:26)
[2019-01-16] MEDS: IPRATRPIUM/ALBUTEROL 0.5/2.5MG 3 ML NEBU. NEB ONE (12:35)
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
[2019-01-16] MEDS ORDERED: VENTOLIN HFA18 GM INH (13:43)
[2019-01-16 13:50] VITALS: BP 148/90
[2019-01-23] MEDS ORDERED: NIFE30TA2 PO (12:50)
== END 2019-01-16 13:50 | disposition home or self-care (01) ==
LOC: ER 11:32
DX: J45.20 Mild intermittent asthma, uncomplicated (principal); G43.909 Migraine, unspecified, not intractable, without status migrainosus; Z88.1 Allergy status to other antibiotic agents; Z91.013 Allergy to seafood
CPT/HCPCS: 71046; 81025; 94640; 99283; J7512; J7620

== ENCOUNTER 2019-01-25 06:07 | Day surgery (SDC) | payer OTHER ==
[~2019-01-25 06:07] MED LIST changes: +BUPIVACAINE-EPI 0.25%-1:200000 MPF 30 ML VIAL. ONE; +NIFE30TA2 PO; +VENTOLIN HFA18 GM INH
[2019-01-25] MEDS ORDERED: fentaNYL PF VIAL 100 MCG/2 ML VIAL IV PRN (07:00)
[2019-01-25] MEDS ORDERED: MORPHINE SULFATE 2 MG/ML VIAL. IV PRN (07:00)
[2019-01-25] MEDS ORDERED: IV RINGERS,LACTATED 1000ML 1,000 ML IV SCH (07:00)
[2019-01-25] MEDS ORDERED: HYDROmorphone 2 MG/ML VIAL IV PRN (07:00)
[2019-01-25] MEDS ORDERED: LIDOCAINE 1% PF 2 ML VIAL. ID PRN (07:00)
[2019-01-25] MEDS ORDERED: ONDANSETRON PF 4 MG/2 ML VIAL. IV PRN (07:00)
[2019-01-25] MEDS ORDERED: PROCHLORPERAZINE 10 MG/2 ML VIAL. IV PRN (07:00)
[2019-01-25] MEDS ORDERED: ROCURONIUM 50 MG/5 ML VIAL. ONE (07:21)
[2019-01-25] MEDS ORDERED: DEXAMETHASONE SOD PHOS 20 MG/5 ML VIAL. ONE (07:21)
[2019-01-25] MEDS ORDERED: PROPOFOL 20 ML IV ONE (07:21)
[2019-01-25] MEDS ORDERED: ONDANSETRON PF 4 MG/2 ML VIAL. ONE (07:21)
[2019-01-25] MEDS ORDERED: LIDOCAINE 2% PF 5 ML VIAL. ONE (07:21)
[2019-01-25 07:41] LABS: U PREG PATIENT NEGATIVE (NEG)
[2019-01-25] MEDS ORDERED: MIDAZOLAM HCL/PF 2 MG/2 ML VIAL. ONE (07:50)
[2019-01-25] MEDS ORDERED: fentaNYL PF VIAL 100 MCG/2 ML VIAL ONE ×2 (07:50→08:58)
[2019-01-25] MEDS ORDERED: KETOROLAC 30 MG/ML INJ FOR OR. INJ ONE (08:00)
[2019-01-25] MEDS ORDERED: SEVOFLURANE 31 TO 60 MINUTES. IH ONE (08:00)
[2019-01-25] MEDS ORDERED: FAMOTIDINE 20 MG/2 ML VIAL ONE (08:06)
[2019-01-25] MEDS ORDERED: GLYCOPYRROLATE 1 MG/5 ML VIAL. ONE (08:19)
[2019-01-25] MEDS ORDERED: NEOSTIGMINE METHYLSULFATE 5 MG/5 ML SYRINGE. ONE (08:19)
--- NOTE | 2019-01-25 08:29 | PDOC ---
BRIEF OPERATIVE NOTE Date: Jan 25, 2019 Pre-Op Diagnosis Sterilization Post-Op Diagnosis Same Procedure Performed [facility] BTL Surgeon Dr. Fowler Anesthesia Type: General Blood Loss 10 ml Specimens Obtained none Findings nml size uterus, nml fallopian tubes and ovaries nancy. Complications none Operative Note see dictation JAREN FOWLER Jr, MD Jan 25, 2019 08:29
--- NOTE | 2019-01-25 08:31 | DISCH ---
DISCHARGE INSTRUCTIONS Condition on Discharge Condition on Discharge: Stable Activity After Discharge Activity Instructions for Disc: Activity as tolerated Lifting Instructions after Dis: No heavy lifting, No pulling or pushing, Do not lift >10 pounds Driving Instructions after Dis: Do not drive today Weight Bearing Status after Di: As tolerated Diet after Discharge Diet after Discharge: Regular Diet Texture: Regular Contacting the DRPhillip after DC Call your doctor for: Concerns you may have Follow-Up Follow up with: Dr. Fowler in 1 week. Treatment/Equipment after DC Adaptive Equipment Issued: None JAREN FOWLER Jr, MD Jan 25, 2019 08:31
[2019-01-25] MEDS ORDERED: ALBUTEROL SULFATE 2.5 MG/3 ML NEBU. ONE (08:36)
[2019-01-25] MEDS ORDERED: OXYC1TAB15 PO (08:38)
--- NOTE | 2019-01-25 08:44 | OP ---
DATE OF SURGERY: PREOPERATIVE DIAGNOSIS: Sterilization. POSTOPERATIVE DIAGNOSIS: Sterilization. PROCEDURE: Laparoscopic BTL. SURGEON: Romero Fowler MD ANESTHESIA: GETA. ESTIMATED BLOOD LOSS: 10 mL. COMPLICATIONS: None. FINDINGS: Normal size uterus, normal fallopian tubes and ovaries bilaterally. SUMMARY: A 28-year-old, desires sterilization, counseled on risks, benefits and expectations as well as failure rate and voiced clear understanding to proceed. DESCRIPTION OF PROCEDURE: The patient was taken to surgery suite and placed in dorsal lithotomy position. She was prepped with Betadine solution for vaginal prep and ChloraPrep for abdominal prep. After adequate anesthesia, bivalve speculum was placed vaginally. Anterior lip of the cervix grasped with single tooth tenaculum. The uterine acorn manipulator was then placed. Attention was now placed on the abdomen. Small transverse skin incision was made just below the umbilicus with a scalpel. The Veress needle was then placed through the infraumbilical incision site. The abdomen was allowed to insufflate up to 1-1/2 liters CO2 gas. The Veress needle was then removed, 5 mm trocar was placed. The scope was positioned. The uterus, fallopian tubes and ovaries appeared normal. A second incision was made in the left lower quadrant, which an 8 mm trocar was placed. With the aid of a Filshie clip applicator, Filshie clip was applied to the right fallopian tube, totally occluding the fallopian tube. Same process was placed within the left adnexa. The trocars were then removed under direct visualization. Abdomen was allowed to deflate as much as possible along with mechanical manipulation. The two skin incisions were reapproximated using 4-0 Vicryl suture in subcuticular manner. A 0.25% Marcaine with epinephrine was injected at each incision site. Uterine acorn manipulator and single tooth tenaculum were removed. The patient tolerated the procedure well and was taken to recovery room in stable condition. Sponge and needle count correct x 3. ROMERO FOWLER MD DR: ALEXI/alyce JOB#: [id number] / [id number]
[2019-01-25] MEDS ORDERED: ALBUTEROL SULFATE 2.5 MG/3 ML NEBU. NEB ONE (08:45)
[2019-01-25] MEDS ORDERED: oxyCODONE/APAP 5/325 1 TAB TABLET PO ONE ×2 (08:45)
[2019-01-25] MEDS: fentaNYL PF VIAL 100 MCG/2 ML VIAL IV PRN ×2 (09:02→09:52)
== END 2019-01-25 10:35 | disposition home or self-care (01) ==
LOC: SURG 06:07
PROVIDERS: ATTEND Obstetrics & Gynecology
DX: Z30.2 Encounter for sterilization (principal); Z88.1 Allergy status to other antibiotic agents; Z91.013 Allergy to seafood; I10 Essential (primary) hypertension; J45.909 Unspecified asthma, uncomplicated; E28.2 Polycystic ovarian syndrome; Z98.890 Other specified postprocedural states; Z79.899 Other long term (current) drug therapy; Z82.0 Family history of epilepsy and other diseases of the nervous system; Z82.49 Family history of ischemic heart disease and other diseases of the circulatory system; Z86.711 Personal history of pulmonary embolism; Z87.891 Personal history of nicotine dependence; E66.9 Obesity, unspecified; Z68.41 Body mass index [BMI] 40.0-44.9, adult; Z72.89 Other problems related to lifestyle
CPT/HCPCS: 58671; 81025; A4264; A7015; J1100; J2001; J2250; J2405; J2704; J2710; J3010; J3490; J7613; J1885

== ENCOUNTER 2020-06-01 16:16 | Emergency (ER) | payer BC, OTHER ==
[~2020-06-01] VITALS: Ht 172.7 cm; Wt 99.1 kg
[~2020-06-01 16:16] MED LIST changes: -BUPIVACAINE-EPI 0.25%-1:200000 MPF 30 ML VIAL. ONE; +OXYC1TAB15 PO
[2020-06-01] MEDS ORDERED: FAMOTIDINE 20 MG/2 ML VIAL IVP ONE (17:00)
[2020-06-01] MEDS ORDERED: IV NORMAL SALINE 1000ML BAG 1,000 ML IV ONE (17:00)
[2020-06-01] MEDS ORDERED: ONDANSETRON PF 4 MG/2 ML VIAL. IVP ONE (17:00)
[2020-06-01 17:06] LABS: BASO # 0.1 x10^3/uL (0.0-0.2); BASO % 1 % (0-3); EOS # 0.1 x10^3/uL (0.0-0.7); EOS % 1 % (0-3); HEMATOCRIT 38.2 % (36.0-47.0); HEMOGLOBIN 12.7 g/dL (12.0-15.5); LYMPH # 1.5 x10^3/uL (1.0-4.8); LYMPH % 13 % (24-48); MEAN CORPUSCULAR HEMOGLOBIN 28 pg (25-35); MEAN CORPUSCULAR HGB CONC 33 g/dL (31-37); MEAN CORPUSCULAR VOLUME 83 fL (79-100); MONO % 9 % (0-9); NEUT # 8.6 x10^3/uL (1.8-7.7); NEUT % 77 % (31-73); PLATELET COUNT 280 x10^3/uL (140-400); RED BLOOD COUNT 4.58 x10^6/uL (3.50-5.40); RED CELL DISTRIBUTION WIDTH 15.3 % (11.5-14.5); WHITE BLOOD COUNT 11.2 x10^3/uL (4.0-11.0)
[2020-06-01 17:17] LABS: CALCIUM 8.8 mg/dL (8.5-10.1); CREATININE 0.6 mg/dL (0.6-1.0); GFR 140.2; POTASSIUM 3.4 mmol/L (3.5-5.1)
[2020-06-01 17:26] LABS: ALBUMIN 2.9 g/dL (3.4-5.0); ALBUMIN/GLOBULIN RATIO 0.6 (1.0-1.7); MAGNESIUM 2.1 mg/dL (1.8-2.4); TOTAL BILIRUBIN 1.2 mg/dL (0.2-1.0); TOTAL PROTEIN 7.4 g/dL (6.4-8.2)
[2020-06-01] MEDS ORDERED: MORPHINE SULFATE 2 MG/ML VIAL. IV ONE (18:30)
[2020-06-01] MEDS ORDERED: DEXAMETHASONE SOD PHOS 20 MG/5 ML VIAL. IV ONE (18:30)
[2020-06-01] MEDS ORDERED: KETOROLAC 30 MG/ML VIAL. IVP ONE (18:30)
[2020-06-01 18:36] LABS: BILIRUBIN,URINE SMALL (NEG); COLOR,URINE AMBER; NITRITE,URINE POSITIVE (NEG); PROTEIN,URINE 30 mg/dL (NEG-TRACE)
[2020-06-01 18:41] LABS: CLARITY,URINE HAZY; SQUAMOUS EPITHELIAL CELL,UR MANY /LPF
[2020-06-01 18:42] LABS: BACTERIA,URINE MANY /HPF (0-FEW); RBC,URINE 20-40 /HPF (0-2); WBC,URINE >40 /HPF (0-4)
[2020-06-01 18:43] LABS: AMPHETAMINE/METHAMPHETAMINE NEG (NEG); BARBITURATES NEG (NEG); BENZODIAZEPINES NEG (NEG); CANNABINOIDS NEG (NEG); COCAINE POS (NEG); METHADONE NEG (NEG); OPIATES NEG (NEG); PHENCYCLIDINE NEG (NEG)
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
--- NOTE | 2020-06-01 20:08 | RAD ---
Study: US OB < 14 WKS DATE: 06/01/2020 6:41 PM INDICATION: Positive hCG in the setting of tubal ligation. COMPARISON: None recently. TECHNIQUE: Transabdominal ultrasound of the pelvis was performed. Color Doppler and duplex were utilized as appropriate. FINDINGS: The uterus is measured at 9.1 x 7.7 x 13.1 cm. Intrauterine gestational sac containing a pole with a heart rate of 157 bpm and a crown-rump length of 5.73 cm. Estimated gestational age by crown-rump length of 12 weeks 2 days +/- 8 days. No perigestational hemorrhage is identified. The right ovary measures 2.7 x 1.9 x 1.8 cm. The left ovary measures 2.7 x 2.3 x 2.0 cm. Normal Doppler flow. No free fluid seen within the deep pelvis. IMPRESSION: Single live intrauterine without complicating features. Estimated gestational age by crown-rump length of 12 weeks 2 days +/- 8 days. Electronically signed by: CHE KING MD (06/01/2020 8:05 PM) [id number]
[2020-06-01] MEDS ORDERED: PROC10TA57 PO (20:33)
[2020-06-01] MEDS ORDERED: CEPH500T PO (20:33)
[2020-06-01 20:35] VITALS: BP 121/75
--- NOTE | 2020-06-04 12:19 | NUR ---
Negative COVID test results discussed with patient and she verbalized understanding. (Chu Pate RN)
== END 2020-06-01 20:50 | disposition home or self-care (01) ==
LOC: ER 16:16
DX: O21.9 Vomiting of pregnancy, unspecified (principal); F14.10 Cocaine abuse, uncomplicated; Z20.818 Contact with and (suspected) exposure to other bacterial communicable diseases; M54.5 Low back pain; R30.0 Dysuria; M25.552 Pain in left hip; J45.909 Unspecified asthma, uncomplicated; G43.909 Migraine, unspecified, not intractable, without status migrainosus; Z98.890 Other specified postprocedural states; Z88.1 Allergy status to other antibiotic agents; Z91.013 Allergy to seafood; Z3A.12 12 weeks gestation of pregnancy
CPT/HCPCS: 36415; 76801; 80053; 80307; 81001; 81025; 83690; 83735; 84702; 85025; 87086; 96361; 96374; 96375; 99285; G0480; J2405; J3490; J7030; U0003

== ENCOUNTER → 2020-06-16 | Outpatient (CLI) | payer BC ==
[2020-06-01 20:35] VITALS: BP 121/75
[~2020-06-16] MED LIST changes: +CEPH500T PO; +PROC10TA57 PO
[2020-06-16 15:54] LABS: BASO % 0 % (0-3); EOS # 0.3 x10^3/uL (0.0-0.7); EOS % 3 % (0-3); HEMATOCRIT 38.3 % (36.0-47.0); HEMOGLOBIN 12.8 g/dL (12.0-15.5); LYMPH % 20 % (24-48); MEAN CORPUSCULAR HEMOGLOBIN 28 pg (25-35); MEAN CORPUSCULAR HGB CONC 34 g/dL (31-37); MEAN CORPUSCULAR VOLUME 84 fL (79-100); MONO # 0.6 x10^3/uL (0.0-1.1); MONO % 6 % (0-9); NEUT # 7.2 x10^3/uL (1.8-7.7); NEUT % 71 % (31-73); PLATELET COUNT 261 x10^3/uL (140-400); RED BLOOD COUNT 4.55 x10^6/uL (3.50-5.40); RED CELL DISTRIBUTION WIDTH 15.5 % (11.5-14.5)
== END | disposition home or self-care (01) ==
LOC: LAB 14:46
PROVIDERS: ATTEND Obstetrics & Gynecology
DX: Z32.01 Encounter for pregnancy test, result positive (principal)
CPT/HCPCS: 36415; 85025; 86592; 86701; 86702; 86703; 86762; 86850; 86900; 86901; 87340

== ENCOUNTER → 2020-07-23 | Outpatient (CLI) | payer BC ==
--- NOTE | 2020-07-23 15:48 | RAD ---
EXAM: Ultrasound PREG MORE THAN OR EQ TO 14 WKS 07/23/2020 11:00 AM INDICATION: Size/date discrepancy. COMPARISON: OB ultrasound 06/01/2020 FINDINGS: There is a single living intrauterine gestation in vertex position. heart rate is 125 bpm. Placenta is posterior, grade 1. The following anatomy as visualized: Three-vessel cord, cord insertion, bladder, stomach, kidneys, cervical, thoracic, and lumbar spine, diaphragm, posterior fossa, lateral ventricles. Four-chamber heart is not well visualized on this exam. The extremities were incompletely visualized. biometry: Biparietal diameter: 4.39 cm, 19 weeks 2 days Head circumference: 16.74 cm, 19 weeks 2 days Abdominal circumference: 14.26 cm, 19 weeks 4 days Femur length: 3.09 cm, 19 weeks 4 days HC/AC ratio: 1.17 BERONICA: Subjectively normal Estimated gestational age by ultrasound: 19 weeks 3 days. Estimated weight: 300 g, 49th percentile. IMPRESSION: 1. Single living intrauterine with gestational age 19 weeks 3 days by ultrasound. Estimated weight 300 g, 49th percentile. 2. Suboptimal visualization of four-chamber heart and incomplete visualization of all 4 extremities, likely due to technical limitations of the exam. Recommend attention on follow-up exam. Electronically signed by: Alma Oswald MD (07/23/2020 3:45 PM) [id number]
== END | disposition home or self-care (01) ==
LOC: US 09:21
PROVIDERS: ATTEND Obstetrics & Gynecology
DX: Z32.01 Encounter for pregnancy test, result positive (principal); O26.842 Uterine size-date discrepancy, second trimester; Z3A.19 19 weeks gestation of pregnancy
CPT/HCPCS: 76805

== ENCOUNTER 2020-09-26 01:54 | Emergency (ER) | payer BC ==
[~2020-09-26] VITALS: Ht 172.7 cm; Wt 109.0 kg
[2020-09-26] MEDS ORDERED: ALBUTEROL SULFATE 2.5 MG/3 ML NEBU. CONT NEB ONE (03:00)
[2020-09-26 03:12] LABS: BASO # 0.1 x10^3/uL (0.0-0.2); BASO % 1 % (0-3); EOS # 0.4 x10^3/uL (0.0-0.7); EOS % 4 % (0-3); HEMATOCRIT 34.3 % (36.0-47.0); HEMOGLOBIN 11.6 g/dL (12.0-15.5); LYMPH # 2.1 x10^3/uL (1.0-4.8); LYMPH % 19 % (24-48); MEAN CORPUSCULAR HEMOGLOBIN 28 pg (25-35); MEAN CORPUSCULAR HGB CONC 34 g/dL (31-37); MEAN CORPUSCULAR VOLUME 83 fL (79-100); MONO # 0.8 x10^3/uL (0.0-1.1); MONO % 7 % (0-9); NEUT # 7.3 x10^3/uL (1.8-7.7); NEUT % 69 % (31-73); PLATELET COUNT 220 x10^3/uL (140-400); RED BLOOD COUNT 4.12 x10^6/uL (3.50-5.40); RED CELL DISTRIBUTION WIDTH 13.8 % (11.5-14.5); WHITE BLOOD COUNT 10.7 x10^3/uL (4.0-11.0)
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
[2020-09-26 03:20] LABS: CALCIUM 8.2 mg/dL (8.5-10.1); CREATININE 0.6 mg/dL (0.6-1.0); GFR 140.2; POTASSIUM 3.7 mmol/L (3.5-5.1)
--- NOTE | 2020-09-26 03:26 | RAD ---
EXAMINATION: CHEST AP ONLY CLINICAL HISTORY: Reason: SOB / Spl. Instructions: / History: EXAM DATE/TIME: 09/26/2020 2:49 AM COMPARISON: 01/17/2020 FINDINGS: Lines, Tubes, and Devices: None. Cardiomediastinal Silhouette: Within normal limits. Lungs and Pleura: No evidence of focal airspace consolidation or pleural effusion. Pulmonary vasculature unremarkable. Bones and Soft Tissues: Multiple old healed right rib fracture deformities. Degenerative changes of the thoracic spine. IMPRESSION: No evidence of acute cardiopulmonary abnormality or significant interval change. Electronically signed by: Kj Silva DO (09/26/2020 3:23 AM) [facility]
[2020-09-26 03:27] LABS: ALBUMIN 2.5 g/dL (3.4-5.0); ALBUMIN/GLOBULIN RATIO 0.7 (1.0-1.7); TOTAL BILIRUBIN 0.3 mg/dL (0.2-1.0); TOTAL PROTEIN 6.3 g/dL (6.4-8.2)
[2020-09-26] MEDS ORDERED: methylPREDNISolone SOD SUCC PF 125 MG/2 ML VIAL. IV ONE (03:45)
[2020-09-26] MEDS ORDERED: IV NORMAL SALINE 1000ML BAG 1,000 ML IV ONE (04:15)
[2020-09-26] MEDS ORDERED: DEXAMETHASONE SOD PHOS 20 MG/5 ML VIAL. IVP ONE (04:30)
[2020-09-26] MEDS ORDERED: PRED50TA PO (04:40)
[2020-09-26 05:00] VITALS: BP 131/68
--- NOTE | 2020-09-26 16:24 | EKG ---
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
--- NOTE | 2020-09-28 12:45 | NUR ---
IP: Attempted to call COVID results. No answer. Left a voicemail to return my call. Addendum: 09/28/20 at 1300 by CHASIDY VACA RN Pt retuned the call and I informed her of the positive COVID test and the need to quarantine for 14 days. Pt verbalized understanding.
== END 2020-09-26 05:20 | disposition home or self-care (01) ==
LOC: ER 01:54
DX: O98.513 Other viral diseases complicating pregnancy, third trimester (principal); U07.1 COVID-19; R06.02 Shortness of breath; O99.513 Diseases of the respiratory system complicating pregnancy, third trimester; J45.909 Unspecified asthma, uncomplicated; G43.909 Migraine, unspecified, not intractable, without status migrainosus; Z3A.29 29 weeks gestation of pregnancy; Z88.1 Allergy status to other antibiotic agents; Z91.013 Allergy to seafood
CPT/HCPCS: 36415; 71045; 80053; 85025; 93005; 94640; 96361; 96374; 99285; C9803; J1100; J7030; J7613; U0003

== ENCOUNTER 2020-11-07 13:58 | Observation (INO) | payer BC ==
[~2020-11-07] VITALS: Ht 175.3 cm; Wt 112.9 kg
[~2020-11-07 13:58] MED LIST changes: +PRED50TA PO
[2020-11-07] MEDS ORDERED: IV RINGERS,LACTATED 1000ML 1,000 ML IV SCH (14:15)
[2020-11-07 14:30] LABS: BILIRUBIN,URINE NEGATIVE (NEG); CLARITY,URINE CLEAR; COLOR,URINE YELLOW; NITRITE,URINE NEGATIVE (NEG); PH,URINE 7.5 (<5.0-8.0); PROTEIN,URINE NEGATIVE (NEG-TRACE)
[2020-11-07 14:52] LABS: BACTERIA,URINE MODERATE /HPF (0-FEW)
[2020-11-07 14:54] LABS: RBC,URINE 0 /HPF (0-2)
[2020-11-07 15:06] LABS: BASO % 0 % (0-3); EOS # 0.1 x10^3/uL (0.0-0.7); EOS % 2 % (0-3); HEMATOCRIT 33.8 % (36.0-47.0); HEMOGLOBIN 11.2 g/dL (12.0-15.5); LYMPH # 1.5 x10^3/uL (1.0-4.8); LYMPH % 17 % (24-48); MEAN CORPUSCULAR HEMOGLOBIN 27 pg (25-35); MEAN CORPUSCULAR HGB CONC 33 g/dL (31-37); MEAN CORPUSCULAR VOLUME 81 fL (79-100); MONO # 0.6 x10^3/uL (0.0-1.1); MONO % 7 % (0-9); NEUT # 6.6 x10^3/uL (1.8-7.7); NEUT % 74 % (31-73); PLATELET COUNT 225 x10^3/uL (140-400); RED BLOOD COUNT 4.17 x10^6/uL (3.50-5.40); RED CELL DISTRIBUTION WIDTH 14.2 % (11.5-14.5); WHITE BLOOD COUNT 8.9 x10^3/uL (4.0-11.0)
[2020-11-07 15:20] LABS: ANION GAP 13 (6-14); BLOOD UREA NITROGEN 5 mg/dL (7-20); BUN/CREATININE RATIO 17 (6-20); CALCIUM 8.6 mg/dL (8.5-10.1); CARBON DIOXIDE 21 mmol/L (21-32); CHLORIDE 107 mmol/L (98-107); CREATININE 0.3 mg/dL (0.6-1.0); GFR > 300.0; GLUCOSE 78 mg/dL (70-99); POTASSIUM 3.6 mmol/L (3.5-5.1); SODIUM 141 mmol/L (136-145)
[2020-11-07 15:49] LABS: BARBITURATES NEG (NEG); BENZODIAZEPINES NEG (NEG); CANNABINOIDS NEG (NEG); COCAINE NEG (NEG); METHADONE NEG (NEG); OPIATES NEG (NEG); PHENCYCLIDINE NEG (NEG)
[2020-11-07 15:53] LABS: AMPHETAMINE/METHAMPHETAMINE NEG (NEG)
[2020-11-07 15:55] LABS: TOTAL PROTEIN 6.3 g/dL (6.4-8.2)
[2020-11-07 15:56] LABS: ALBUMIN 2.5 g/dL (3.4-5.0); ALBUMIN/GLOBULIN RATIO 0.7 (1.0-1.7); ALK PHOS 142 U/L (46-116); ALT (SGPT) 19 U/L (14-59); AST (SGOT) 16 U/L (15-37); TOTAL BILIRUBIN 0.8 mg/dL (0.2-1.0)
== END 2020-11-07 16:48 | disposition home or self-care (01) ==
LOC: 3 SO LND 13:58
PROVIDERS: ADMIT Obstetrics & Gynecology; ATTEND Obstetrics & Gynecology
DX: O13.3 Gestational [pregnancy-induced] hypertension without significant proteinuria, third trimester (principal); O26.893 Other specified pregnancy related conditions, third trimester; O62.9 Abnormality of forces of labor, unspecified; Z79.82 Long term (current) use of aspirin; Z3A.34 34 weeks gestation of pregnancy; Z79.899 Other long term (current) drug therapy
CPT/HCPCS: 36415; 59025; 80053; 80307; 81001; 82570; 84156; 85025; 87086; 87147; G0378; G0379

== ENCOUNTER 2020-11-24 18:13 | Observation (INO) | payer BC ==
[~2020-11-24] VITALS: Ht 157.5 cm; Wt 78.0 kg
[2020-11-24] MEDS ORDERED: IV RINGERS,LACTATED 1000ML 1,000 ML IV SCH (19:15)
[2020-11-24 19:26] LABS: AMNIO PT NEGATIVE
[2020-11-24 19:32] LABS: BILIRUBIN,URINE NEGATIVE (NEG); CLARITY,URINE CLEAR; COLOR,URINE YELLOW; NITRITE,URINE NEGATIVE (NEG); PROTEIN,URINE NEGATIVE (NEG-TRACE)
[2020-11-24 19:37] LABS: AMPHETAMINE/METHAMPHETAMINE NEG (NEG); BARBITURATES NEG (NEG); BENZODIAZEPINES NEG (NEG); CANNABINOIDS NEG (NEG); COCAINE NEG (NEG); METHADONE NEG (NEG); OPIATES NEG (NEG); PHENCYCLIDINE NEG (NEG)
[2020-11-24 19:51] LABS: BACTERIA,URINE MANY /HPF (0-FEW)
[2020-11-24 20:50] VITALS: BP 137/73
[2020-11-24] MEDS ORDERED: hydrOXYzine 25 MG TABLET PO PRN (21:45)
== END 2020-11-24 21:55 | disposition home or self-care (01) ==
LOC: 3 SO LND 18:13
PROVIDERS: ADMIT Obstetrics & Gynecology; ATTEND Obstetrics & Gynecology
DX: O42.92 Full-term premature rupture of membranes, unspecified as to length of time between rupture and onset of labor (principal); O62.9 Abnormality of forces of labor, unspecified; O26.893 Other specified pregnancy related conditions, third trimester; R10.9 Unspecified abdominal pain; Z3A.37 37 weeks gestation of pregnancy; Z79.899 Other long term (current) drug therapy
CPT/HCPCS: 36415; 59025; 80307; 81001; 84112; 87086; G0378; G0379

== ENCOUNTER 2020-12-04 23:51 | Observation (INO) | payer BC ==
[2020-12-05] MEDS ORDERED: IV RINGERS,LACTATED 1000ML 1,000 ML IV SCH
[2020-12-05 00:18] LABS: BILIRUBIN,URINE NEGATIVE (NEG); CLARITY,URINE CLEAR; COLOR,URINE YELLOW; NITRITE,URINE NEGATIVE (NEG); PROTEIN,URINE NEGATIVE (NEG-TRACE); UROBILINOGEN,URINE 0.2 mg/dL (0.2 mg/dL)
[2020-12-05 00:32] LABS: AMPHETAMINE/METHAMPHETAMINE NEG (NEG); BARBITURATES NEG (NEG); BENZODIAZEPINES NEG (NEG); CANNABINOIDS NEG (NEG); COCAINE NEG (NEG); METHADONE NEG (NEG); OPIATES NEG (NEG); PHENCYCLIDINE NEG (NEG)
[2020-12-05 00:44] LABS: BACTERIA,URINE MODERATE /HPF (0-FEW); WBC,URINE TNTC /HPF (0-4)
== END 2020-12-05 04:00 | disposition home or self-care (01) ==
LOC: 3 SO LND 23:51
PROVIDERS: ADMIT Obstetrics & Gynecology; ATTEND Obstetrics & Gynecology
DX: O62.9 Abnormality of forces of labor, unspecified (principal); Z3A.38 38 weeks gestation of pregnancy; Z79.899 Other long term (current) drug therapy
CPT/HCPCS: 80307; 81001; 87077; 87086; G0378; G0379; 59025

== ENCOUNTER → 2020-12-09 | Outpatient (CLI) | payer BC ==
[2020-11-24 20:50] VITALS: BP 137/73
== END ==
LOC: LAB 11:18
PROVIDERS: ATTEND Obstetrics & Gynecology
DX: Z20.822 Contact with and (suspected) exposure to COVID-19 (principal)
CPT/HCPCS: U0003

== ENCOUNTER 2020-12-11 19:18 | Inpatient (IN) | payer BC ==
[~2020-12-11] VITALS: Ht 175.3 cm; Wt 114.3 kg
[2020-12-11] MEDS ORDERED: LIDOCAINE 1% PF 30 ML VIAL. INJ PRN (19:30)
[2020-12-11] MEDS ORDERED: fentaNYL PF VIAL 100 MCG/2 ML VIAL IVP PRN (19:30)
[2020-12-11] MEDS ORDERED: ONDANSETRON PF 4 MG/2 ML VIAL. IVP PRN (19:30)
[2020-12-11] MEDS ORDERED: 0.9 % SODIUM CHLORIDE 10 ML DISP.SYRIN. IV PRN (19:30)
[2020-12-11] MEDS ORDERED: TERBUTALINE 1 MG/ML VIAL. SQ PRN (19:30)
[2020-12-11] MEDS ORDERED: MAG HYDROX/ALUMINUM HYD/SIMETH 30 ML ORAL.SUSP PO PRN (19:30)
[2020-12-11] MEDS ORDERED: ACETAMINOPHEN 325 MG TABLET. PO PRN (19:30)
[2020-12-11] MEDS ORDERED: OXYTOCIN 30 UNIT/500 ML PREMIX 500 ML IV PRN (19:30)
[2020-12-11 19:43] LABS: BILIRUBIN,URINE NEGATIVE (NEG); CLARITY,URINE CLEAR; COLOR,URINE YELLOW; NITRITE,URINE NEGATIVE (NEG); PH,URINE 7.5 (<5.0-8.0); PROTEIN,URINE NEGATIVE (NEG-TRACE); UROBILINOGEN,URINE 0.2 mg/dL (0.2 mg/dL)
[2020-12-11 19:53] LABS: BACTERIA,URINE 0 /HPF (0-FEW); RBC,URINE 0 /HPF (0-2)
[2020-12-11] MEDS: IV RINGERS,LACTATED 1000ML 1,000 ML IV PRN (19:53)
[2020-12-11 20:00] VITALS: BP 147/87
[2020-12-11] MEDS ORDERED: DINOPROSTONE 10 MG SUPP.VAG VG ONE (20:00)
[2020-12-11] MEDS ORDERED: PENICILLIN G K 5,000,000 UNIT in IV DEXTROSE 5% 100ML 100 ML IV ONE (20:00)
[2020-12-11 20:12] LABS: BASO % 0 % (0-3); EOS # 0.2 x10^3/uL (0.0-0.7); EOS % 2 % (0-3); LYMPH # 2.2 x10^3/uL (1.0-4.8); LYMPH % 22 % (24-48); MEAN CORPUSCULAR HEMOGLOBIN 26 pg (25-35); MEAN CORPUSCULAR HGB CONC 33 g/dL (31-37); MEAN CORPUSCULAR VOLUME 79 fL (79-100); MONO # 0.9 x10^3/uL (0.0-1.1); MONO % 9 % (0-9); NEUT # 6.7 x10^3/uL (1.8-7.7); NEUT % 67 % (31-73); PLATELET COUNT 232 x10^3/uL (140-400); RED BLOOD COUNT 4.67 x10^6/uL (3.50-5.40); RED CELL DISTRIBUTION WIDTH 15.1 % (11.5-14.5); WHITE BLOOD COUNT 9.9 x10^3/uL (4.0-11.0)
[2020-12-11 21:46] LABS: AMPHETAMINE/METHAMPHETAMINE NEG (NEG); BARBITURATES NEG (NEG); BENZODIAZEPINES NEG (NEG); CANNABINOIDS NEG (NEG); COCAINE NEG (NEG); METHADONE NEG (NEG); OPIATES NEG (NEG); PHENCYCLIDINE NEG (NEG)
[2020-12-11] MEDS ORDERED: diphenhydrAMINE HCL 25 MG CAPSULE PO PRN (23:15)
[2020-12-12] MEDS: PENICILLIN G K 2,500,000 UNIT in IV DEXTROSE 5% 50 ML IV SCH ×6 (03:52→20:00)
[2020-12-12] MEDS: IV RINGERS,LACTATED 1000ML 1,000 ML IV PRN (03:58)
[2020-12-12] MEDS ORDERED: OXYTOCIN PREMIX 30 UNIT/500 ML NS BAG. IV ONE (06:00)
[2020-12-12] MEDS ORDERED: OXYTOCIN 30 UNIT/500 ML PREMIX 500 ML IV PRN ×2 (06:00→12:30)
--- NOTE | 2020-12-12 07:55 | PDOC1 ---
OB - History Hx of Present Care: Good Care Ultrasounds: Normal mid trimester US Obstetrical Complications: None Medical Complications: None Past Family/Social History * Past Medical, Surgical, Family and Obstetric Histories reviewed from chart. Rubella: Immune RPR/VDRL: Negative GBS Status: Positive HBsAG: Negative OB - Chief Complaint & HPI Date of Admission: Date of Admission: Dec 11, 2020 at 19:18 Chief Complaint/History : 4 Para: 2 EGA: 39 Reason for admission: induction of labor Admission Nurse Assessment Rev: Yes OB - Admission Exam Physical Exam Vitals: VS - Last 72 Hours, by Label Date Time Temp Pulse Resp B/P (MAP) Pulse Ox O2 Delivery O2 Flow Rate FiO2 12/11/20 20:00 98.2 69 18 147/87 (107) Room Air 98.2 HEENT: Normal Heart: Regular Rate Lungs: Clear Abdomen: Gravid, Non tender, Soft Extremities: Edema Reflexes: Normal Cervical Dilatation: 2cm Effacement: 50% Station: -3 Membranes: Intact Heart Rate: Normal Accelerations: Accelerations Present Decelerations: No decelerations Contractions on Admission: None Text A: 39 wks IUP GBS positive IOL secondary discomforts of P: Admit IOL cervidil, then pitocin in am. Start Pen G prophylaxis in am. JAREN VELAZQUEZ Jr, MD Dec 12, 2020 07:55
[2020-12-12] MEDS ORDERED: LIDOCAINE 2% PF 5 ML VIAL. ONE (09:12)
[2020-12-12] MEDS ORDERED: L&D EPIDURAL SYRINGE 50 ML ONE (09:26)
[2020-12-12] MEDS ORDERED: NALOXONE 0.4 MG/ML VIAL. IV PRN (09:45)
[2020-12-12] MEDS ORDERED: IV RINGERS,LACTATED 1000ML 1,000 ML IV SCH (09:45)
[2020-12-12] MEDS ORDERED: ROPIVacaine 0.2% PF 10 ML VIAL. EPID PRN (09:45)
[2020-12-12] MEDS ORDERED: L&D EPIDURAL SYRINGE 50 ML EPID PRN (09:45)
[2020-12-12] MEDS ORDERED: L&D EPIDURAL 50 ML SYRINGE. ONE (10:00)
--- NOTE | 2020-12-12 12:18 | PDOC ---
VAGINAL DELIVERY DATE DATE: 12/12/20 TIME: 12:17 : 4 Para: 3 EGA: 39 VAGINAL DELIVERY: VTX VACCUM ASSISTED: No PLACENTA: Spontaneous 8/9 SEX: Female WEIGHT Weight [ pending ] Nuchal Cord: No Amniotic Fluid: Clear PAIN: Epidural EPISIOTOMY: No EXTENSION: No EBL 300 ml COMPLICATIONS none CONDITION pt. stable Signs of Intrauterine Infectio: None Shoulder Dystocia: No JAREN VELAZQUEZ Jr, MD Dec 12, 2020 12:18
[2020-12-12] MEDS ORDERED: PHENYLEPH/MINERAL OIL/PETROLAT RECTAL OINTMENT TUBE. RC PRN (12:30)
[2020-12-12] MEDS ORDERED: oxyCODONE/APAP 5/325 1 TAB TABLET PO PRN (12:30)
[2020-12-12] MEDS ORDERED: MAG HYDROX/ALUMINUM HYD/SIMETH 30 ML ORAL.SUSP PO PRN (12:30)
[2020-12-12] MEDS ORDERED: BENZOCAINE 20% TOPICAL AEROSOL SPRAY 57GM CAN. TP PRN (12:30)
[2020-12-12] MEDS ORDERED: ACETAMINOPHEN 325 MG TABLET. PO PRN (12:30)
[2020-12-12] MEDS ORDERED: HYDROCORTISONE 1% TOPICAL OINTMENT 30GM TUBE. TP PRN (12:30)
[2020-12-12] MEDS ORDERED: MAGNESIUM HYDROXIDE 2,400 MG/30 ML ORAL.SUSP. PO PRN (12:30)
[2020-12-12] MEDS ORDERED: SIMETHICONE 80 MG TAB.CHEW PO PRN (12:30)
[2020-12-12] MEDS ORDERED: ZOLPIDEM 5 MG TABLET. PO PRN (12:30)
[2020-12-12] MEDS ORDERED: TDaP (Adacel) per PROTOCOL. MC PRN (12:30)
[2020-12-12] MEDS ORDERED: IBUPROFEN 400 MG TABLET. PO PRN (12:30)
[2020-12-12] MEDS ORDERED: 0.9 % SODIUM CHLORIDE 10 ML DISP.SYRIN. IV PRN (12:30)
[2020-12-12] MEDS ORDERED: diphenhydrAMINE HCL 25 MG CAPSULE PO PRN (12:30)
[2020-12-12] MEDS ORDERED: MMR per PROTOCOL. MC PRN (12:30)
[2020-12-12] MEDS: IBUPROFEN 400 MG TABLET. PO PRN ×2 (15:04→21:45)
[2020-12-12 17:44] VITALS: BP 131/76
[2020-12-12 20:30] VITALS: BP 118/59
[2020-12-13] MEDS: PENICILLIN G K 2,500,000 UNIT in IV DEXTROSE 5% 50 ML IV SCH
[2020-12-13 01:01] VITALS: BP 136/74
[2020-12-13 04:41] VITALS: BP 133/72
[2020-12-13] MEDS ORDERED: FERROUS SULFATE 325 MG TABLET. PO SCH (08:00)
[2020-12-13] MEDS: DOCUSATE SODIUM 100 MG CAPSULE. PO PRN (08:30)
[2020-12-13] MEDS: MULTIVITAMIN with MINERAL TABLET. PO SCH (08:30)
[2020-12-13] MEDS: IBUPROFEN 400 MG TABLET. PO PRN ×2 (08:31→16:45)
[2020-12-13 09:24] LABS: BASO % 0 % (0-3); EOS # 0.2 x10^3/uL (0.0-0.7); EOS % 2 % (0-3); HEMATOCRIT 33.8 % (36.0-47.0); HEMOGLOBIN 11.1 g/dL (12.0-15.5); LYMPH # 2.1 x10^3/uL (1.0-4.8); LYMPH % 23 % (24-48); MEAN CORPUSCULAR HEMOGLOBIN 26 pg (25-35); MEAN CORPUSCULAR HGB CONC 33 g/dL (31-37); MEAN CORPUSCULAR VOLUME 79 fL (79-100); MONO # 0.4 x10^3/uL (0.0-1.1); MONO % 5 % (0-9); NEUT # 6.5 x10^3/uL (1.8-7.7); NEUT % 70 % (31-73); PLATELET COUNT 197 x10^3/uL (140-400); RED BLOOD COUNT 4.26 x10^6/uL (3.50-5.40); RED CELL DISTRIBUTION WIDTH 14.8 % (11.5-14.5); WHITE BLOOD COUNT 9.3 x10^3/uL (4.0-11.0)
--- NOTE | 2020-12-13 10:01 | PDOC ---
OB Progress Note Date of Service 12/13/20 Time of Evaluation 1000 Notes Pt. feeling well. No complaints. Lab Laboratory Tests Test 12/11/20 19:30 12/11/20 19:55 12/13/20 08:35 Urine Collection Type Unknown Urine Color Yellow Urine Clarity Clear Urine pH 7.5 (<5.0-8.0) Urine Specific [place] 1.010 (1.000-1.030) Urine Protein Negative mg/dL (NEG-TRACE) Urine Glucose (UA) Negative mg/dL (NEG) Urine Ketones (Stick) Negative mg/dL (NEG) Urine Blood Negative (NEG) Urine Nitrite Negative (NEG) Urine Bilirubin Negative (NEG) Urine Urobilinogen Dipstick 0.2 mg/dL (0.2 mg/dL) Urine Leukocyte Esterase Moderate (NEG) Urine RBC 0 /HPF (0-2) Urine WBC 1-4 /HPF (0-4) Urine Squamous Epithelial Cells Few /LPF Urine Bacteria 0 /HPF (0-FEW) Urine Opiates Screen Neg (NEG) Urine Methadone Screen Neg (NEG) Urine Barbiturates Neg (NEG) Urine Phencyclidine Screen Neg (NEG) Urine Amphetamine/Methamphetamine Neg (NEG) Urine Benzodiazepines Screen Neg (NEG) Urine Cocaine Screen Neg (NEG) Urine Cannabinoids Screen Neg (NEG) Urine Ethyl Alcohol Neg (NEG) White Blood Count 9.9 x10^3/uL (4.0-11.0) 9.3 x10^3/uL (4.0-11.0) Red Blood Count 4.67 x10^6/uL (3.50-5.40) 4.26 x10^6/uL (3.50-5.40) Hemoglobin 12.0 g/dL (12.0-15.5) 11.1 g/dL (12.0-15.5) Hematocrit 37.0 % (36.0-47.0) 33.8 % (36.0-47.0) Mean Corpuscular Volume 79 fL (79-100) 79 fL (79-100) Mean Corpuscular Hemoglobin 26 pg (25-35) 26 pg (25-35) Mean Corpuscular Hemoglobin Concent 33 g/dL (31-37) 33 g/dL (31-37) Red Cell Distribution Width 15.1 % (11.5-14.5) 14.8 % (11.5-14.5) Platelet Count 232 x10^3/uL (140-400) 197 x10^3/uL (140-400) Neutrophils (%) (Auto) 67 % (31-73) 70 % (31-73) Lymphocytes (%) (Auto) 22 % (24-48) 23 % (24-48) Monocytes (%) (Auto) 9 % (0-9) 5 % (0-9) Eosinophils (%) (Auto) 2 % (0-3) 2 % (0-3) Basophils (%) (Auto) 0 % (0-3) 0 % (0-3) Neutrophils # (Auto) 6.7 x10^3/uL (1.8-7.7) 6.5 x10^3/uL (1.8-7.7) Lymphocytes # (Auto) 2.2 x10^3/uL (1.0-4.8) 2.1 x10^3/uL (1.0-4.8) Monocytes # (Auto) 0.9 x10^3/uL (0.0-1.1) 0.4 x10^3/uL (0.0-1.1) Eosinophils # (Auto) 0.2 x10^3/uL (0.0-0.7) 0.2 x10^3/uL (0.0-0.7) Basophils # (Auto) 0.0 x10^3/uL (0.0-0.2) 0.0 x10^3/uL (0.0-0.2) Glucose Level 77 mg/dL (70-99) Treponema pallidum Antibody Nonreactive (Nonreactive) Laboratory Tests Test 12/13/20 08:35 White Blood Count 9.3 x10^3/uL (4.0-11.0) Red Blood Count 4.26 x10^6/uL (3.50-5.40) Hemoglobin 11.1 g/dL (12.0-15.5) Hematocrit 33.8 % (36.0-47.0) Mean Corpuscular Volume 79 fL (79-100) Mean Corpuscular Hemoglobin 26 pg (25-35) Mean Corpuscular Hemoglobin Concent 33 g/dL (31-37) Red Cell Distribution Width 14.8 % (11.5-14.5) Platelet Count 197 x10^3/uL (140-400) Neutrophils (%) (Auto) 70 % (31-73) Lymphocytes (%) (Auto) 23 % (24-48) Monocytes (%) (Auto) 5 % (0-9) Eosinophils (%) (Auto) 2 % (0-3) Basophils (%) (Auto) 0 % (0-3) Neutrophils # (Auto) 6.5 x10^3/uL (1.8-7.7) Lymphocytes # (Auto) 2.1 x10^3/uL (1.0-4.8) Monocytes # (Auto) 0.4 x10^3/uL (0.0-1.1) Eosinophils # (Auto) 0.2 x10^3/uL (0.0-0.7) Basophils # (Auto) 0.0 x10^3/uL (0.0-0.2) Medications Current Medications Sodium Chloride (Normal Saline Flush) 3 ml QSHIFT PRN IV AFTER MEDS AND BLOOD DRAWS; Start 12/11/20 at 19:30 Ringer's Solution 1,000 ml @ 125 mls/hr Q8H PRN IV hydration Last administered on 12/12/20at 03:58; Start 12/11/20 at 19:30 Fentanyl Citrate (Fentanyl 2ml Vial) 100 mcg PRN Q30MIN PRN IVP Severe pain; Start 12/11/20 at 19:30 Acetaminophen (Tylenol) 650 mg PRN Q6HRS PRN PO MILD PAIN / TEMP > 100.3'F Last administered on 12/11/20at 23:08; Start 12/11/20 at 19:30 Ondansetron HCl (Zofran) 8 mg PRN Q4HRS PRN IVP NAUSEA/VOMITING; Start 12/11/20 at 19:30 Al Hydroxide/Mg Hydroxide (Mylanta Plus Xs) 30 ml PRN Q4HRS PRN PO HEARTBURN / GAS; Start 12/11/20 at 19:30 Terbutaline Sulfate (Brethine) 0.25 mg 1X PRN PRN SQ SEE COMMENTS; Start 12/11/20 at 19:30; Stop 12/12/20 at 19:29; Status DC Lidocaine HCl (Xylocaine 1% Pf 30ml Vial) 30 ml 1X PRN PRN INJ SEE COMMENTS; Start 12/11/20 at 19:30; Stop 12/13/20 at 19:29 Oxytocin 500 ml @ 0 mls/hr CONT PRN IV SEE I/O RECORD; Start 12/12/20 at 06:00 Oxytocin 500 ml @ 0 mls/hr CONT PRN PRN IV Post delivery bleeding; Start 12/11/20 at 19:30 Ibuprofen (Motrin) 800 mg PRN Q6HRS PRN PO PAIN Last administered on 12/13/20at 08:31; Start 12/11/20 at 19:30 Penicillin G Potassium [id number] unit/Dextrose 100 ml @ 100 mls/hr 1X ONCE IV Last administered on 12/11/20at 23:55; Start 12/11/20 at 20:00; Stop 12/11/20 at 20:59; Status DC Penicillin G Potassium [id number] unit/Dextrose 50 ml @ 100 mls/hr Q4H IV Last administered on 12/12/20at 11:54; Start 12/12/20 at 00:00 Dinoprostone (Cervidil) 10 mg 1X ONCE VG Last administered on 12/11/20at 20:31; Start 12/11/20 at 20:00; Stop 12/11/20 at 20:01; Status DC Diphenhydramine HCl (Benadryl) 50 mg PRN QHS PRN PO INSOMNIA Last administered on 12/11/20at 23:18; Start 12/11/20 at 23:15 Oxytocin (Oxytocin Premix Infusion) 30 unit STK-MED ONCE IV ; Start 12/12/20 at 06:00; Stop 12/12/20 at 08:54; Status DC Lidocaine HCl (Lidocaine Pf 2% Vial) 5 ml STK-MED ONCE .ROUTE ; Start 12/12/20 at 09:12; Stop 12/12/20 at 09:13; Status DC Fentanyl Citrate 50 ml @ As Directed STK-MED ONCE .ROUTE ; Start 12/12/20 at 09:26; Stop 12/12/20 at 09:26; Status DC Ringer's Solution 1,000 ml @ 1,000 mls/hr Q1H IV Last administered on 12/12/20at 09:41; Start 12/12/20 at 09:45; Stop 12/12/20 at 10:44; Status DC Naloxone HCl (Narcan) 0.04 mg PRN Q1MIN PRN IV SEE COMMENTS; Start 12/12/20 at 09:45 Fentanyl Citrate 50 ml @ 14 mls/hr CONT PRN EPID PAIN; Start 12/12/20 at 09:45 Ropivacaine (Naropin 0.2%) 20 ml 1X PRN PRN EPID PER ANESTHESIA; Start 12/12/20 at 09:45; Stop 12/13/20 at 09:44; Status DC Sodium Chloride (Normal Saline Flush) 10 ml QSHIFT PRN IV AFTER MEDS AND BLOOD DRAWS; Start 12/12/20 at 12:30 Oxytocin 500 ml @ 62.5 mls/hr CONT PRN IV SEE I/O RECORD; Start 12/12/20 at 12:30; Stop 12/12/20 at 20:29; Status DC Acetaminophen (Tylenol) 650 mg PRN Q6HRS PRN PO MILD PAIN / TEMP > 100.3'F; S tart 12/12/20 at 12:30 Ibuprofen (Motrin) 800 mg PRN Q8HRS PRN PO INFLAMMATION/PAIN PREVENTION; Start 12/12/20 at 12:30; Stop 12/12/20 at 21:45; Status DC Docusate Sodium (Colace) 100 mg PRN BID PRN PO CONSTIPATION Last administered on 12/13/20at 08:30; Start 12/12/20 at 12:30 Magnesium Hydroxide (Milk Of Magnesia) 2,400 mg PRN DAILY PRN PO CONSTIPATION; Start 12/12/20 at 12:30 Al Hydroxide/Mg Hydroxide (Mylanta Plus Xs) 30 ml PRN Q4HRS PRN PO HEARTBURN / GAS; Start 12/12/20 at 12:30 Simethicone (Gas-X) 80 mg PRN AFTMEALHC PRN PO GAS / BLOATING; Start 12/12/20 at 12:30 Diphenhydramine HCl (Benadryl) 25 mg PRN Q6HRS PRN PO ITCHING; Start 12/12/20 at 12:30 Benzocaine (Americaine) 1 spray PRN QID PRN TP TOPICAL PAIN Last administered on 12/12/20at 15:05; Start 12/12/20 at 12:30 Phenyleph/Shark Oil/Min Oil/Petrol (Preparation H) 1 kenny PRN QID PRN RC RECTAL PAIN; Start 12/12/20 at 12:30 Hydrocortisone (Cortaid) 1 kenny PRN QID PRN TP PERINEAL PAIN; Start 12/12/20 at 12:30 Ferrous Sulfate (Feosol) 325 mg BIDWMEALS PO ; Start 12/13/20 at 08:00 Zolpidem Tartrate (Ambien) 5 mg PRN QHS PRN PO INSOMNIA, MAY REPEAT X1; Start 12/12/20 at 12:30 Info (Do NOT chart on this placeholder) 1 ea 1X PRN PRN MC SEE COMMENTS; Start 12/12/20 at 12:30 Info (Do NOT chart on this placeholder) 1 ea 1X PRN PRN MC SEE COMMENTS; Start 12/12/20 at 12:30 Oxycodone/ Acetaminophen (Percocet 5/325) 2 tab PRN Q4HRS PRN PO MODERATE PAIN, SEVERE PAIN; Start 12/12/20 at 12:30 Multivitamins (Thera M Plus) 1 tab DAILY PO Last administered on 12/13/20at 08:30; Start 12/13/20 at 09:00 Active Scripts Active Prednisone 50 Mg Tablet 1 Tab PO DAILY Compazine (Prochlorperazine Maleate) 10 Mg Tablet 1 Tab PO Q6HRS Cephalexin 500 Mg Tablet 1 Tab PO BID Ventolin Hfa Inhaler (Albuterol Sulfate) 18 Gm Hfa.aer.ad 2 Puff INH Q4HRS Reported Percocet 5-325 Mg Tablet (Oxycodone/Acetaminophen) 1 Each Tablet 1-2 Tab PO PRN Q4-6HRS PRN Procardia Xl (Nifedipine) 30 Mg Tab.er.24 1 Tab PO DAILY Exam ABd: soft, non tender, fundus firm Assessment PPD#1 s/p Plan of Care: Continue current Tx, Mgmt JAREN VELAZQUEZ Jr, MD Dec 13, 2020 10:01
[2020-12-13 10:15] VITALS: BP 108/56
[2020-12-13 16:45] VITALS: BP 130/65
[2020-12-13 20:40] VITALS: BP 136/89
[2020-12-14] MEDS: IBUPROFEN 400 MG TABLET. PO PRN ×2 (04:40→11:03)
[2020-12-14 04:43] VITALS: BP 135/83
[2020-12-14] MEDS: MULTIVITAMIN with MINERAL TABLET. PO SCH (11:01)
[2020-12-14] MEDS: DOCUSATE SODIUM 100 MG CAPSULE. PO PRN (11:02)
[2020-12-14 11:05] VITALS: BP 140/82
--- NOTE | 2020-12-14 13:01 | PDOC3 ---
OB DISCHARGE SUMMARY DATE OF ADMISSION: 12/11/20 DATE OF DISCHARGE: 12/14/20 REASON FOR ADMISSION: Induction of labor INTRAPARTUM PROCEDURES: Spontanous Vag Deliv DISCHARGE DIAGNOSIS: Term Delivered DISCHARGE INFORMATION: Activity (ad taj), Diet (regular), Instructions (pelvic rest x 6 wks) HOSPITAL COURSE Term gestation delivered vaginally without complications. JAREN VELAZQUEZ Jr, MD Dec 14, 2020 13:01
--- NOTE | 2020-12-14 13:03 | DISCH ---
DISCHARGE INSTRUCTIONS Condition on Discharge Condition on Discharge: Stable Activity After Discharge Activity Instructions for Disc: Activity as tolerated Lifting Instructions after Dis: No heavy lifting, No pulling or pushing, Do not lift >10 pounds Driving Instructions after Dis: Do not drive today Weight Bearing Status after Di: As tolerated Diet after Discharge Diet after Discharge: Regular Diet Texture: Regular Contacting the DRPhillip after DC Call your doctor for: Concerns you may have Follow-Up Follow up with: Dr. Fowler in 4 wks Treatment/Equipment after DC Adaptive Equipment Issued: None JAREN FOWLER Jr, MD Dec 14, 2020 13:03
[2020-12-14 14:45] VITALS: BP 142/88
--- NOTE | 2020-12-14 15:15 | NUR ---
Discharge and follow up instructions reviewed and given to pt. Dr. Fowler e-scribed medication to pt's pharmacy. Pt denied any questions or complaints at this time. Pt ambulated out of the hospital with staff by her side.
== END 2020-12-14 15:15 | disposition home or self-care (01) | DRG 807 ==
LOC: 3 SO LND 19:18
PROVIDERS: ADMIT Obstetrics & Gynecology; ATTEND Obstetrics & Gynecology
PROC: 10E0XZZ Delivery of Products of Conception, External Approach (ICD-10-PCS; principal; 2020-12-11)
DX: O80 Encounter for full-term uncomplicated delivery (principal); Z37.0 Single live birth; Z3A.39 39 weeks gestation of pregnancy
CPT/HCPCS: 36415; 80307; 81001; 82947; 85025; 86592; 86850; 86900; 86901; 87086; J2540; J2590; J3010; J7060; J7120; G0378; Q0163

== ENCOUNTER 2021-02-12 06:46 | Day surgery (SDC) | payer BC ==
[~2021-02-12] VITALS: Ht 172.7 cm; Wt 108.0 kg
[~2021-02-12 06:46] MED LIST changes: +HYDROmorphone 2 MG/ML VIAL IVP PRN; +IV RINGERS,LACTATED 1000ML 1,000 ML IV SCH; +MORPHINE SULFATE 2 MG/ML VIAL. IVP PRN; +PROCHLORPERAZINE 10 MG/2 ML VIAL. IVP PRN; +fentaNYL PF VIAL 100 MCG/2 ML VIAL IVP PRN
[2021-02-12] MEDS ORDERED: BUPIVACAINE-EPI 0.25% 30 ML VIAL KIT. ONE (06:47)
[2021-02-12] MEDS ORDERED: SURGICEL HEMOSTAT 4X8 EACH. ONE (06:47)
[2021-02-12] MEDS ORDERED: ALBU1.25 NEB (07:38)
[2021-02-12] MEDS ORDERED: SUMA50TA3 PO (07:40)
[2021-02-12] MEDS ORDERED: SEVOFLURANE 31 TO 60 MINUTES. IH ONE (08:00)
[2021-02-12] MEDS ORDERED: ROCURONIUM 50 MG/5 ML VIAL. ONE (08:00)
[2021-02-12] MEDS ORDERED: fentaNYL PF VIAL 100 MCG/2 ML VIAL ONE ×2 (08:00→09:29)
[2021-02-12] MEDS ORDERED: GLYCOPYRROLATE 1 MG/5 ML VIAL. ONE (08:00)
[2021-02-12] MEDS ORDERED: NEOSTIGMINE METHYLSULFATE 5 MG/5 ML SYRINGE. ONE (08:00)
[2021-02-12] MEDS ORDERED: ceFAZolin 2GM PREMIX 2 GM/50 ML BAG IV ONE (08:00)
[2021-02-12] MEDS ORDERED: MIDAZOLAM HCL/PF 2 MG/2 ML VIAL. ONE (08:00)
[2021-02-12] MEDS ORDERED: LIDOCAINE 2% PF 5 ML VIAL. ONE (08:01)
[2021-02-12] MEDS ORDERED: ONDANSETRON PF 4 MG/2 ML VIAL. ONE (08:01)
[2021-02-12] MEDS ORDERED: PROPOFOL 10 MG/ML (20ML) VIAL. IV ONE (08:01)
[2021-02-12] MEDS ORDERED: KETOROLAC 30 MG/ML VIAL. ONE (08:01)
[2021-02-12] MEDS ORDERED: DEXAMETHASONE SOD PHOS 4 MG/ML VIAL ONE (08:01)
--- NOTE | 2021-02-12 09:28 | PDOC ---
BRIEF OPERATIVE NOTE Date: Feb 12, 2021 Pre-Op Diagnosis Sterilization Post-Op Diagnosis Same Procedure Performed [facility] Jamir. Salpingectomy Surgeon Dr. Fowler Anesthesia Type: General Blood Loss 5 ml Specimens Obtained jamir. fallopian tubes and filshie clips Findings nml size uterus, nml fallopian tubes and ovaries jamir., both filshie clips Complications none Operative Note see dictation JAREN FOWLER Jr, MD Feb 12, 2021 09:28
[2021-02-12] MEDS ORDERED: PROCHLORPERAZINE 10 MG/2 ML VIAL. ONE (09:29)
--- NOTE | 2021-02-12 09:30 | DISCH ---
DISCHARGE INSTRUCTIONS Condition on Discharge Condition on Discharge: Stable Activity After Discharge Activity Instructions for Disc: Avoid exertion Lifting Instructions after Dis: No heavy lifting, No pulling or pushing Driving Instructions after Dis: Do not drive today Weight Bearing Status after Di: No restrictions Diet after Discharge Diet after Discharge: Regular Diet Texture: Regular Liquid Texture: Thin Liquid Swallowing Supervision: None needed Contacting the DRPhillip after DC Call your doctor for: Concerns you may have Follow-Up Follow up with: Dr. Fowler in 1 week Treatment/Equipment after DC Adaptive Equipment Issued: None JAREN FOWLER Jr, MD Feb 12, 2021 09:30
--- NOTE | 2021-02-12 09:50 | OP ---
DATE OF SURGERY: PREOPERATIVE DIAGNOSIS: Sterilization. POSTOPERATIVE DIAGNOSIS: Sterilization. PROCEDURE: Laparoscopic bilateral salpingectomy. SURGEON: Jaren Fowler MD ANESTHESIA: GETA. ESTIMATED BLOOD LOSS: 5 mL. COMPLICATIONS: None. FINDINGS: Normal size uterus, normal fallopian tubes and ovaries bilaterally, both Filshie clips. SUMMARY: A 30-year-old, desires permanent sterilization, was counseled on risks, benefits and expectations of bilateral salpingectomy and voiced clear understanding to proceed. DESCRIPTION OF PROCEDURE: The patient was taken to surgery suite and placed in dorsal lithotomy position, was prepped with Betadine solution for vaginal prep and ChloraPrep for abdominal prep. After adequate anesthesia, bivalve speculum was placed vaginally. Anterior lip of the cervix grasped with single tooth tenaculum. Uterine acorn manipulator was then placed. The bivalve speculum was removed. Attention was placed on abdomen in which a small transverse skin incision was made just below the umbilicus with a scalpel. The Veress needle was then placed through the infraumbilical incision site. The abdomen was allowed to insufflate up to 1-1/2 liters CO2 gas. The Veress needle was then removed, 5 mm trocar was placed. The scope was positioned. Uterus was normal size. Fallopian tubes and ovaries appeared normal bilaterally. Both Filshie clips were present. The left fallopian tube appeared to have fallen off. The right fallopian tube had been dissected with the Filshie clip as anticipated. Two additional incisions made in the left lower quadrant in which a 5 mm trocar and an 8-mm trocars were placed. With aid of Jatin graspers and EnSeal device, the right fallopian tube was coagulated and dissected and removed with the Filshie clips. Same process took place with left adnexa. The adnexa were hemostatic. Suction irrigation was utilized to verify. Small amount of normal saline was left in posterior cul-de-sac. The trocars were then removed under direct visualization. Abdomen was allowed to deflate as much as possible along with mechanical manipulation. The three skin incisions were reapproximated using 4-0 Vicryl suture in subcuticular manner. A 0.25% Marcaine with epinephrine was injected at each incision site. Uterine acorn manipulator and single tooth tenaculum were then removed. The patient tolerated the procedure well and was taken to recovery room in stable condition. Sponge and needle count correct x 3. JAREN FOWLER MD DR: ALEXI/alyce JOB#: [id number] / [id number]
[2021-02-12] MEDS ORDERED: OXYC-325 PO (10:06)
[2021-02-12 10:39] VITALS: BP 143/78
--- NOTE | 2021-02-17 14:13 | PATHOLOGY ---
[facility] Accession Number: [id number] . 01 Material submitted: . PART A: fallopian tube - RIGHT FALLOPIAN TUBE AND FILSHIE CLIP. Modifiers: right PART B: fallopian tube - LEFT FALLOPIAN TUBE AND FILSHIE CLIP. Modifiers: left . 01 Clinical history: . STERILIZATION . 02 Diagnosis: A. Right salpingectomy: - Fimbriated segment of fallopian tube confirmed, showing congestion and Filshie clip. . B. Left salpingectomy: - Fimbriated segment of fallopian tube confirmed, showing congestion and Filshie clip. ([facility]PM:[facility] 02/16/2021) [facility] 02/16/2021 1648 Local . 02 Electronically signed: . Haseeb Mathew MD, Pathologist NPI- [id number] . 01 Gross description: . A.Fixative: Formalin Labeled: Right fallopian tube and filshie clip Measurements: 5.9 cm in length x 0.5 cm in diameter, there is a metallic bradshaw clip grossly consistent with a sterilization device measuring 1.5 x 0.3 x 0.3 cm. There are no markings on this device. Fimbriated: Yes External surface: Smooth, collier-purple and glistening Cut Surface: Collier-white pinpoint lumen A1 Radiologist Chief Of Breast Imaging fallopian tube and fimbriated end . B. Fixative: Formalin Labeled: Left fallopian tube and filshie clip Measurements: 4.9 cm in length x 0.5 cm in diameter, there is a metallic bradshaw clip grossly consistent with a sterilization device measuring 1.5 x 0.3 x 0.3 cm. There are no markings on this device. Fimbriated: Yes External surface: Smooth, collier-brown and glistening Cut Surface: Collier-white pinpoint lumen B1 Radiologist Chief Of Breast Imaging fallopian tube and fimbriated end ([facility]; 02/14/2021) [facility] 02/14/2021 1032 Local . 02 Pathologist provided ICD-10: Z30.2 . 02 CPT . 926709, [id number] Specimen Comment: A courtesy copy of this report has been sent to [phone], [phone] Specimen Comment: [id number] Specimen Comment: Report sent to / DR MANN Performed at: 01 [facility] [address], [place] [id number] MD Roalndo Cullen MD Phone: [phone] Performed at: 02 [facility] [address] [place], [place] [id number] MD Haseeb Mathew MD Phone: [phone]
== END 2021-02-12 11:14 | disposition home or self-care (01) ==
LOC: SURG 06:46
PROVIDERS: ATTEND Obstetrics & Gynecology
DX: Z30.2 Encounter for sterilization (principal); I10 Essential (primary) hypertension; J45.909 Unspecified asthma, uncomplicated; E66.9 Obesity, unspecified; Z20.822 Contact with and (suspected) exposure to COVID-19; Z90.49 Acquired absence of other specified parts of digestive tract; Z98.51 Tubal ligation status; Z98.890 Other specified postprocedural states; Z79.899 Other long term (current) drug therapy; Z72.89 Other problems related to lifestyle; Z88.1 Allergy status to other antibiotic agents; Z91.013 Allergy to seafood; Z88.8 Allergy status to other drugs, medicaments and biological substances
CPT/HCPCS: 58661; 81025; 87426; A4930; A6219; J0690; J0780; J1100; J1885; J2250; J2405; J2704; J2710; J3010; J3490; U0003; U0005